=== PATIENT | female | born 1945 | race Caucasian/White ===

== ENCOUNTER → 2016-12-15 | Outpatient (CLI) | payer MEDICARE ==
[~2016-12-15] MED LIST: AMLO10TA4 PO; ASCO100083 PO; ASP81CT; ATR20T; CAL/MAG/ZINC PO; CHOL100055 PO; CPR500T PO; DULO60CA6 PO; GINKO; HYDR-3720 PO; HYDR1TAB PO; INDM25C PO; ISOS20TA73 PO; OMEP-10 PO; OMG1KC PO; PRILOSEC; RLX60T PO; VIT D; VITAMIN E PO; [UNRECOGNIZED DRUG - OTHER]
--- NOTE | 2016-12-15 14:36 | Diagnostic Imaging Report ---
EXAMINATION: Right breast ultrasound. INDICATION: Right breast pain and lump. FINDINGS: Unremarkable breast parenchyma is seen in the outer aspect with no underlying lesion in the area of palpable lump at the 10:30 o'clock position and elsewhere in the outer aspect of the right breast. IMPRESSION: Negative study. Clinical followup is recommended. ACR BI-RADS Category 1: Negative. Dictated by: Dictated on workstation # [id number]
--- NOTE | 2016-12-15 18:11 | Diagnostic Imaging Report ---
Bilateral diagnostic mammogram. INDICATION: Right breast pain, outer aspect. The current study was also evaluated with a Computer Aided Detection (CAD) system. FINDINGS: Heterogeneously dense parenchyma which may decrease mammographic sensitivity is seen. There are benign-appearing calcifications noted. No mass, architectural distortion or suspicious cluster of calcification is noted. IMPRESSION: Stable dense breasts. Ultrasound evaluation pending. ACR BI-RADS Category 0: Incomplete. (Needs additional imaging evaluation). Result letter will be mailed to the patient. Note: At least 10% of breast cancer is not imaged by mammography. Dictated by: Dictated on workstation # [id number]
== END ==
LOC: RAD 10:31
PROVIDERS: ATTEND Internal Medicine
DX: N64.4 Mastodynia (principal)
CPT/HCPCS: 77066

== ENCOUNTER → 2017-03-11 | Outpatient (CLI) | payer MEDICARE ==
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
== END ==
LOC: RAD 17:26
PROVIDERS: ATTEND Internal Medicine
DX: S19.9XXA Unspecified injury of neck, initial encounter (principal); M47.812 Spondylosis without myelopathy or radiculopathy, cervical region; X58.XXXA Exposure to other specified factors, initial encounter; Y99.8 Other external cause status
CPT/HCPCS: 72040

== ENCOUNTER → 2017-04-06 | Outpatient (CLI) | payer OTHER, MEDICARE ==
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
== END ==
LOC: RAD 09:31
PROVIDERS: ATTEND Internal Medicine
DX: M48.07 Spinal stenosis, lumbosacral region (principal); M51.34 Other intervertebral disc degeneration, thoracic region; Z98.1 Arthrodesis status
CPT/HCPCS: 72148

== ENCOUNTER 2017-12-24 12:15 | Emergency (ER) | payer MEDICARE ==
[~2017-12-24] VITALS: Ht 157.5 cm; Wt 106.6 kg
--- OUTSIDE RECORDS SUMMARY | 2017-12-24 12:21 | XMS REPORT ---
Author Author IMELDA LÓPEZ [employer] Address Unknown Phone Unavailable Care Team Providers Care Gis Programmer Name Role Phone IMELDA LÓPEZ CP Unavailable Allergies, Adverse Reactions, Alerts Substance Reaction Event Type N.K.D.A. Info Not Available Non Drug Allergy Problems Problem Type Condition Code Onset Dates Condition Status Assessment Dental examination Z01.20 Active Problem ZOSTAVAX DX V05.8 Active Medications Medication Code System Code Instructions Start Date End Date Status Dosage Prilosec [facility] [address]-27 not defined Aspir-81 [facility] [address]-13 not defined Nitroglycerin [facility] [address]-23 not defined Omeprazole ND 0 not defined Raloxifene HCl [facility] [address]-81 not defined Inderal LA [facility] [address]-43 not defined Evista [facility] [address]-07 not defined Procedures Procedure Coding System Code Date INTRAORL-PERIAPICAL 1 FILM 78619 CPT-4 D0220 May 13, 2016 LTD ORAL EVALUATION - PROBLEM FOCUS CPT-4 D0140 May 13, 2016 Results No Known Results Summary Purpose eClinicalWorks Submission
--- OUTSIDE RECORDS SUMMARY | 2017-12-24 12:21 | XMS REPORT | Clinical Summary ---
Author Author [facility] Organization [facility] Address Unknown Phone Unavailable Care Team Providers Care Motors And Generators Inspector Name Role Phone Fer Delarosa MD PCP Source Comments Some departments are not documenting in the electronic medical record. If you do not see the information that you expected, contact Release of Information in the Health Information Management department at [phone] for further assistance in locating additional records.[facility] Allergies No Known Allergies Current Medications Prescription Sig. Disp. Refills Start End Date Status Date HYDROcodone/acetaminophen Take 1 tablet by mouth as Active (+) (NORCO) 10/325 mg Needed for Pain tablet omeprazole DR(+) Take 20 mg by mouth daily Active (PRILOSEC) 20 mg capsule before breakfast. duloxetine DR (CYMBALTA) Take 60 mg by mouth Active 60 mg capsule daily. aspirin EC 81 mg tablet Take 81 mg by mouth Active daily. Take with food. amLODIPine (NORVASC) 10 Take 10 mg by mouth Active mg tablet daily. isosorbide mononitrate SR Take 60 mg by mouth every Active (IMDUR) 60 mg tablet morning. raloxifene (EVISTA) 60 mg Take 60 mg by mouth daily Active tablet before breakfast. simvastatin (ZOCOR) 40 mg Take 40 mg by mouth at Active tablet bedtime daily. Active Problems Problem Noted Date Degenerative scoliosis in adult patient 08/25/2017 Spinal stenosis of lumbar region without neurogenic claudication 08/25/2017 Social History Tobacco Use Types Packs/Day Years Used Date Never Smoker Smokeless Tobacco: Never Used Sex Assigned at Date Recorded Not on file Last Filed Vital Signs Vital Sign Reading Time Taken Blood Pressure 146/88 08/25/2017 8:55 AM PATIENT SERVICES COORDINATOR Pulse 104 08/25/2017 8:55 AM PATIENT SERVICES COORDINATOR Temperature - - Respiratory Rate - - Oxygen Saturation 94% 08/25/2017 8:55 AM PATIENT SERVICES COORDINATOR Inhaled Oxygen - - Concentration Weight 103 kg (227 lb) 08/25/2017 8:55 AM PATIENT SERVICES COORDINATOR Height 157.5 cm (5' 2") 08/25/2017 8:55 AM PATIENT SERVICES COORDINATOR Body Mass Index 41.52 08/25/2017 8:55 AM PATIENT SERVICES COORDINATOR Plan of Treatment Health Maintenance Due Date Last Done Comments HEPATITIS C SCREENING 1944 PHYSICAL (COMPREHENSIVE) 1951 EXAM PERTUSSIS VACCINE 1955 TETANUS VACCINE 1961 BREAST CANCER SCREENING 1984 COLORECTAL CANCER 1994 SCREENING SHINGLES VACCINE 2004 OSTEOPOROSIS SCREENING 2009 PREVNAR/PNEUMOVAX (#1) 2009 INFLUENZA VACCINE 05/23/2018 Results Not on filefrom Last 3 Months
--- OUTSIDE RECORDS SUMMARY | 2017-12-24 12:21 | XMS REPORT | Continuity of Care Document ---
Author Author [employer] [facility] Address Unknown Phone Unavailable Care Team Providers Care Film Maker Name Role Phone [employer] Unavailable Unavailable Problems Medications Allergies, Adverse Reactions, Alerts Immunizations Results Vital Signs Encounters Location Location Details Encounter Type Encounter Number Reason For Visit Attending Provider ADM Date DC Date Status Source O 04/06/2017 04/06/2017 Active [facility] OUTPATIENT [id number] OPAL RANDALL 08/25/2017 08/25/2017 Active [facility] OUTPATIENT [id number] OPAL RANDALL 11/24/2017 Active [facility] Procedures Plan of Care Social History Assessment and Plan Family History Advance Directives Functional Status
--- OUTSIDE RECORDS SUMMARY | 2017-12-24 12:21 | XMS REPORT | Continuity of Care Document ---
Author Author [facility] Address Unknown Phone Unavailable Allergies Active Description Code Type Severity Reaction Onset Reported/Identified Relationship to Patient Clinical Status Yes No Known Drug Allergies [id number] Drug Allergy Mild N/A 01/09/2008 Medications There is no data. Problems Date Dx Coded Attending Type Code Diagnosis Diagnosed By 04/13/2011 Ot 401.9 HYPERTENSION NOS 04/13/2011 Ot 592.1 CALCULUS OF URETER 04/13/2011 Ot 599.0 URIN TRACT INFECTION NOS 04/13/2011 Ot 625.9 FEM GENITAL SYMPTOMS NOS 07/05/2012 Ot V45.4 ARTHRODESIS STATUS 07/05/2012 Ot V57.1 PHYSICAL THERAPY NEC 07/22/2012 Ot 311 DEPRESSIVE DISORDER NEC 07/22/2012 Ot 327.23 OBSTRUCTIVE SLEEP APNEA (ADULT) (PEDIATR 07/22/2012 Ot 401.9 HYPERTENSION NOS 07/22/2012 Ot 715.36 LOC OSTEOARTH NOS-L/LEG 09/15/2012 Ot V43.65 KNEE JOINT REPLACEMENT STATUS 09/15/2012 Ot V54.81 AFTERCARE FOLLOWING JOINT REPLACEMENT 09/15/2012 Ot V57.1 PHYSICAL THERAPY NEC 07/09/2014 DANNIE WOOD DO Ot 793.82 07/09/2014 DANNIE WOOD DO Ot V76.12 07/09/2014 DANNIE WOOD DO Ot 793.82 07/09/2014 DANNIE WOOD DO Ot V76.12 07/09/2014 DANNIE WOOD DO Ot 793.82 07/09/2014 DANNIE WOOD DO Ot V76.12 07/18/2014 GUILLERMO BURGOS MD Ot 211.3 BENIGN NEOPLASM LG BOWEL 07/18/2014 GUILLERMO BURGOS MD Ot 455.0 INT HEMORRHOID W/O COMPL 07/18/2014 GUILLERMO BURGOS MD Ot 455.3 EXT HEMORRHOID W/O COMPL 07/18/2014 GUILLERMO BURGOS MD Ot 562.10 DIVERTICULOSIS COLON (W/O MENT OF HEMORR 07/18/2014 GUILLERMO BURGOS MD Ot V76.51 SCREEN MAL NEOP-COLON 07/26/2014 DANNIE WOOD DO Ot 793.82 07/26/2014 DANNIE WOOD DO Ot V76.12 09/04/2014 MANDY BLOUNT DO V05.8 ZOSTAVAX DX 11/07/2014 Ot 275.2 DIS MAGNESIUM METABOLISM 11/07/2014 Ot 401.0 MALIGNANT HYPERTENSION 11/07/2014 Ot 427.69 PREMATURE BEATS NEC 11/07/2014 Ot 780.57 UNSPECIFIED SLEEP APNEA 11/07/2014 Ot 786.50 CHEST PAIN NOS 11/07/2014 Ot V15.81 HX OF PAST NONCOMPLIANCE 11/10/2014 PAIGE WOOD SKI LIFT MECHANIC Ot 327.23 OBSTRUCTIVE SLEEP APNEA (ADULT) (PEDIATR 11/10/2014 PAIGE WOOD SKI LIFT MECHANIC Ot 786.09 RESPIRATORY ABNORM NEC 02/12/2015 GAYLA NGUYEN MD Ot 427.69 02/14/2015 GAYLA NGUYEN MD Ot 427.69 03/07/2015 OPAL KRAFT MD Ot 401.9 HYPERTENSION NOS 03/07/2015 OPAL KRAFT MD Ot 427.31 ATRIAL FIBRILLATION 03/07/2015 OPAL KRAFT MD Ot 530.81 ESOPHAGEAL REFLUX 03/07/2015 OPAL KRAFT MD Ot 786.09 RESPIRATORY ABNORM NEC 03/07/2015 OPAL KRAFT MD Ot 786.50 CHEST PAIN NOS 03/07/2015 OPAL KRAFT MD Ot V58.69 OTH MED,LT,CURRENT USE 09/20/2015 Ot V76.12 09/20/2015 Ot 724.02 09/20/2015 Ot 591 09/20/2015 Ot 592.1 09/20/2015 Ot 592.9 09/20/2015 Ot 733.90 09/20/2015 Ot V58.69 09/20/2015 Ot V76.12 09/20/2015 Ot 715.96 09/20/2015 Ot V72.63 09/20/2015 Ot V72.81 09/20/2015 Ot V72.83 09/20/2015 Ot 793.82 09/20/2015 Ot V76.12 09/20/2015 PAIGE VALDOVINOS TRACTOR OPERATOR Ot 611.79 09/20/2015 DANNIE WOOD DO Ot 793.82 09/20/2015 DANNIE WOOD DO Ot V76.12 09/20/2015 GUILLERMO BURGOS MD Ot V72.84 09/20/2015 NGUYEN MD, GAYLA Romero Ot 427.69 10/10/2015 PAIGE WOOD SKI LIFT MECHANIC Ot Z12.31 07/24/2016 TRACI PAUL, RE Ledesma Ot Z01.818 ENCOUNTER FOR OTHER PREPROCEDURAL EXAMIN 07/24/2016 TRACI PAUL, RE Ledesma Ot Z86.010 PERSONAL HISTORY OF COLONIC POLYPS 07/27/2016 Ot 724.02 SPINAL STENOSIS, LUMBAR REG, W/OUT NEURO 07/27/2016 Ot 591 HYDRONEPHROSIS 07/27/2016 Ot 592.1 CALCULUS OF URETER 07/27/2016 Ot 592.9 URINARY CALCULUS NOS 07/27/2016 Ot 733.90 BONE CARTILAGE DIS NOS 07/27/2016 Ot V58.69 OTH MED,LT, CURRENT USE 07/27/2016 Ot V76.12 OTH SCREEN MAMMO-MALIGN NEOPLASM OF SHEELA 07/27/2016 Ot 715.96 OSTEOARTHROS NOS-L/LEG 07/27/2016 Ot V72.63 PRE- PROCEDURAL LABORATORY EXAMINATION 07/27/2016 Ot V72.81 EXAM-PRE- OPERATIVE CARDIOVASCULAR 07/27/2016 Ot V72.83 EXAM PRE- OPERATIVE NEC 07/27/2016 Ot 793.82 INCONCLUSIVE MAMMOGRAM 07/27/2016 Ot V76.12 OTH SCREEN MAMMO-MALIGN NEOPLASM OF SHEELA 07/27/2016 PAIGE VALDOVINOS TRACTOR OPERATOR Ot 611.79 SYMPTOMS IN BREAST NEC 07/27/2016 DANNIE WOOD DO Ot 793.82 INCONCLUSIVE MAMMOGRAM 07/27/2016 DANNIE WOOD DO Ot V76.12 OTH SCREEN MAMMO-MALIGN NEOPLASM OF SHEELA 07/27/2016 AUBREY PAUL, GUILLERMO Ot V72.84 EXAM PRE-OPERATIVE NOS 07/27/2016 NGUYEN MD, GAYLA Romero Ot 427.69 PREMATURE BEATS NEC 07/27/2016 ISRAEL PAIGE Cunningham SKI LIFT MECHANIC Ot Z12.31 ENCNTR SCREEN MAMMOGRAM FOR MALIGNANT NE 07/27/2016 TRACI PAUL, RE Ledesma Ot Z01.818 ENCOUNTER FOR OTHER PREPROCEDURAL EXAMIN 07/27/2016 TRACI PAUL, RE Ledesma Ot Z86.010 PERSONAL HISTORY OF COLONIC POLYPS 07/27/2016 TRACI PAUL, RE Ledesma Ot K57.90 DVRTCLOS OF INTEST, PART UNSP, W/O PERF 07/27/2016 TRACI PAUL, RE Ledesma Ot Z09 ENCNTR FOR F/U EXAM AFT TRTMT FOR COND O 07/27/2016 TRACI PAUL, RE Ledesma Ot Z86.010 PERSONAL HISTORY OF COLONIC POLYPS 07/30/2016 TRACI PAUL, RE Ledesma Ot K57.90 DVRTCLOS OF INTEST, PART UNSP, W/O PERF 07/30/2016 RE AVILES MD Ot Z09 ENCNTR FOR F/U EXAM AFT TRTMT FOR COND O 07/30/2016 TRACI PAUL, RE Ledesma Ot Z86.010 PERSONAL HISTORY OF COLONIC POLYPS 09/24/2016 Ot 591 HYDRONEPHROSIS 09/24/2016 Ot 592.1 CALCULUS OF URETER 09/24/2016 Ot 592.9 URINARY CALCULUS NOS 09/24/2016 Ot 733.90 BONE CARTILAGE DIS NOS 09/24/2016 Ot V58.69 OTH MED,LT, CURRENT USE 09/24/2016 Ot V76.12 OTH SCREEN MAMMO-MALIGN NEOPLASM OF SHEELA 09/24/2016 Ot 715.96 OSTEOARTHROS NOS-L/LEG 09/24/2016 Ot V72.63 PRE- PROCEDURAL LABORATORY EXAMINATION 09/24/2016 Ot V72.81 EXAM-PRE- OPERATIVE CARDIOVASCULAR 09/24/2016 Ot V72.83 EXAM PRE- OPERATIVE NEC 09/24/2016 Ot 793.82 INCONCLUSIVE MAMMOGRAM 09/24/2016 Ot V76.12 OTH SCREEN MAMMO-MALIGN NEOPLASM OF SHEELA 09/24/2016 BONIFACIO PAIGE Romero TRACTOR OPERATOR Ot 611.79 SYMPTOMS IN BREAST NEC 09/24/2016 DANNIE WOOD DO Ot 793.82 INCONCLUSIVE MAMMOGRAM 09/24/2016 DANNIE WOOD DO Ot V76.12 OTH SCREEN MAMMO-MALIGN NEOPLASM OF SHEELA 09/24/2016 AUBREY PAUL, GUILLERMO Ot V72.84 EXAM PRE-OPERATIVE NOS 09/24/2016 NGUYEN MD, GAYLA Romero Ot 427.69 PREMATURE BEATS NEC 09/24/2016 PAIGE WOOD Ot Z12.31 ENCNTR SCREEN MAMMOGRAM FOR MALIGNANT NE 09/24/2016 TRACI PAUL, RE Ledesma Ot Z01.818 ENCOUNTER FOR OTHER PREPROCEDURAL EXAMIN 09/24/2016 TRACI PAUL, RE Ledesma Ot Z86.010 PERSONAL HISTORY OF COLONIC POLYPS 12/15/2016 DANNIE WOOD DO Ot N64.4 MASTODYNIA 01/06/2017 DANNIE WOOD DO Ot N64.4 MASTODYNIA 01/19/2017 DANNIE WOOD DO Ot N64.4 MASTODYNIA 03/15/2017 DANNIE WOOD DO Ot M47.812 SPONDYLOSIS W/O MYELOPATHY OR RADICULOPA 03/15/2017 DANNIE WOOD DO Ot S19.9XXA UNSPECIFIED INJURY OF NECK, INITIAL ENCO 03/15/2017 DANNIE WOOD DO Ot X58.XXXA EXPOSURE TO OTHER SPECIFIED FACTORS, INI 03/15/2017 DANNIE WOOD DO Ot Y99.8 OTHER EXTERNAL CAUSE STATUS 04/06/2017 DANNIE WOOD DO Ot M47.812 SPONDYLOSIS W/O MYELOPATHY OR RADICULOPA 04/06/2017 DANNIE WOOD DO Ot S19.9XXA UNSPECIFIED INJURY OF NECK, INITIAL ENCO 04/06/2017 DANNIE WOOD DO Ot X58.XXXA EXPOSURE TO OTHER SPECIFIED FACTORS, INI 04/06/2017 DANNIE WOOD DO Ot Y99.8 OTHER EXTERNAL CAUSE STATUS 04/23/2017 DANNIE WOOD DO Ot M47.812 SPONDYLOSIS W/O MYELOPATHY OR RADICULOPA 04/23/2017 DANNIE WOOD DO Ot S19.9XXA UNSPECIFIED INJURY OF NECK, INITIAL ENCO 04/23/2017 DANNIE WOOD DO Ot X58.XXXA EXPOSURE TO OTHER SPECIFIED FACTORS, INI 04/23/2017 DANNIE WOOD DO Ot Y99.8 OTHER EXTERNAL CAUSE STATUS 05/26/2017 WOOD DO DANNIE Wilcox Ot M47.812 SPONDYLOSIS W/O MYELOPATHY OR RADICULOPA 05/26/2017 WOOD DO, DANNIE Jeri Ot S19.9XXA UNSPECIFIED INJURY OF NECK, INITIAL ENCO 05/26/2017 WOOD DO DANNIE Wilcox Ot X58.XXXA EXPOSURE TO OTHER SPECIFIED FACTORS, INI 05/26/2017 ISRAEL SOTO DANNIE Jeri Ot Y99.8 OTHER EXTERNAL CAUSE STATUS 05/27/2017 WOOD DO DANNIE Wilcox Ot M47.812 SPONDYLOSIS W/O MYELOPATHY OR RADICULOPA 05/27/2017 WOOD DO, DANNIE Wilcox Ot S19.9XXA UNSPECIFIED INJURY OF NECK, INITIAL ENCO 05/27/2017 WOOD DO DANNIE Wilcox Ot X58.XXXA EXPOSURE TO OTHER SPECIFIED FACTORS, INI 05/27/2017 ISRAEL SOTO DANNIE Jeri Ot Y99.8 OTHER EXTERNAL CAUSE STATUS 09/21/2017 DANNIE WOOD DO Ot M48.07 SPINAL STENOSIS, LUMBOSACRAL REGION 09/21/2017 ISRAEL SOTO DANNIE eJri Ot M51.34 OTHER INTERVERTEBRAL DISC DEGENERATION, 09/21/2017 ISRAEL SOTO DANNIE Jeri Ot Z98.1 ARTHRODESIS STATUS Procedures Code Description Performed By Performed On 81.54 TOTAL KNEE REPLACEMENT 07/19/2012 Results There is no data. Encounters ACCT No. Visit Date/Time Discharge Status Pt. Type Provider Facility Loc./Unit Complaint [id number] 09/04/2014 16:37:00 09/04/2014 23:59:59 CLS Outpatient BLOUNT MANDY SOTO Sameer [id number] 04/06/2017 09:31:00 04/06/2017 23:59:59 CLS Outpatient DANNIE WOOD DO [facility] RAD M48.06 [id number] 03/11/2017 17:26:00 03/11/2017 23:59:59 CLS Outpatient DANNIE WOOD DO [facility] RAD TRAUMA [id number] 12/15/2016 10:31:00 12/15/2016 23:59:59 CLS Outpatient DANNIE WOOD DO [facility] RAD N64.4 [id number] 11/23/2016 09:53:00 11/23/2016 23:59:59 CLS Preadmit RODNEY ROSALES MD [facility] REHAB R TKA [id number] 09/28/2016 11:15:00 09/28/2016 23:59:59 CLS Preadmit PAIGE WOOD SKI LIFT MECHANIC [facility] RAD SCREENING [id number] 07/27/2016 06:24:00 07/27/2016 09:30:00 DIS Outpatient RE AVILES MD [facility] SDC HISTORY OF POLYPS [id number] 07/23/2016 05:38:00 07/23/2016 23:59:59 CLS Outpatient RE AVILES MD [facility] PREOP HISTORY OF POLYPS [id number] 09/20/2015 12:57:00 09/20/2015 23:59:59 CLS Outpatient PAIGE WOOD SKI LIFT MECHANIC [facility] RAD SCREENING [id number] 03/07/2015 15:55:00 03/07/2015 21:29:00 DIS Emergency ABENA PAUL, OPAL Mars [facility] ER CP [id number] 01/10/2015 12:59:00 01/10/2015 23:59:59 CLS Outpatient GAYLA NGUYEN MD [facility] CARD PALP [id number] 11/09/2014 20:03:00 11/10/2014 06:35:00 DIS Outpatient PAIGE WOOD SKI LIFT MECHANIC [facility] SLEEP OBSERVED APNEAS SNORING CHOKING HTN HYPOXIA [id number] 07/18/2014 09:20:00 07/18/2014 12:42:00 DIS Outpatient GUILLERMO BURGOS MD [facility] SDC SCREENING [id number] 07/12/2014 07:27:00 07/12/2014 23:59:59 CLS Outpatient GUILLERMO BURGOS MD [facility] PREOP SCREENING [id number] 07/05/2014 14:22:00 07/05/2014 23:59:59 CLS Outpatient DANNIE WOOD DO [facility] RAD ROUTINE [id number] 07/07/2013 12:14:00 07/07/2013 23:59:59 CLS Outpatient PAIGE VALDOVINOS Nick NEVAREZN [facility] RAD NIPPLE DISHCARGE, PAIN [id number] 11/06/2014 15:20:00 Document Registration [id number] 09/23/2012 13:53:00 Document Registration [id number] 09/15/2012 13:49:00 Document Registration [id number] 07/19/2012 13:00:00 Document Registration [id number] 07/12/2012 08:14:00 Document Registration [id number] 06/02/2012 12:48:00 Document Registration [id number] 09/17/2011 13:54:00 Document Registration [id number] 04/22/2011 10:24:00 Document Registration [id number] 04/16/2011 13:05:00 Document Registration [id number] 04/13/2011 15:45:00 Document Registration [id number] 03/23/2011 09:33:00 Document Registration [id number] 08/28/2010 08:50:00 Document Registration
--- NOTE | 2017-12-24 13:51 | ED General ---
General Chief Complaint: General Problems/Pain Stated Complaint: LOWER BACK SWELLING Source of Information: Patient, Family Exam Limitations: No Limitations History of Present Illness Date Seen by Provider: December 24, 2017 Time Seen by Provider: 13:47 Initial Comments To ER by her daughter per private vehicle with reports of swelling to the left low back. On the of this month patient had low back surgery by Dr. Woodward. At that same time she also had a lipoma to the left flank that he removed. Starting yesterday the area of the former lipoma became increasingly red painful and tender. No fevers or chills. Timing/Duration: 1-2 Days Severity: Moderate Associated Systoms: No Fever/Chills Allergies and Home Medications Allergies Coded Allergies: No Known Drug Allergies (Verified , 01/09/08) Home Medications Amlodipine Besylate 10 Mg Tablet, 10 MG PO HS, (Reported) Ascorbic Acid 1,000 Mg Tab.chew, 1,000 MG PO DAILY, (Reported) Cholecalciferol (Vitamin D3) 10,000 Unit Capsule, 20,000 UNIT PO DAILY, ( Reported) TAKES 2 (10,000 UNITS) Duloxetine Hcl 60 Mg Capsule.dr, 60 MG PO HS, (Reported) Hydrocodone Bit/Acetaminophen 1 Ea Tab, 1 TAB PO Q6H PRN for PAIN, (Reported) Isosorbide Mononitrate 20 Mg Tablet, 20 MG PO DAILY, (Reported) [place] 3 Polyunsat Fatty Acids 1,000 Mg Cap, 1,000 MG PO DAILY, (Reported) Omeprazole 20 Mg Capsule.dr, 20 MG PO DAILY, (Reported) Raloxifene Hcl 60 Mg Tablet, 60 MG PO HS, (Reported) Sulfamethoxazole/Trimethoprim 1 Each Tablet, 1 EACH PO BID Prescribed by: RYDER DIXON on 12/24/17 1435 [Vitamin E] , 1 CAP PO DAILY, (Reported) Patient Home Medication List Home Medication List Reviewed: Yes Review of Systems Constitutional: see HPI; No chills, No fever EENTM: see HPI Respiratory: no symptoms reported Cardiovascular: no symptoms reported Genitourinary: no symptoms reported Musculoskeletal: no symptoms reported Skin: see HPI Psychiatric/Neurological: No Symptoms Reported Hematologic/Lymphatic: No Symptoms Reported Past Jscypux-Ygexrh-Kjlwoe Hx Patient Social History Recent Foreign Travel: No Contact w/Someone Who Travel: No Recent Hopitalizations: Yes (BACK SURG) Immunizations Up To Date Tetanus Booster (TDap): More than 5yrs Date of Pneumonia Vaccine: Nov 06, 2010 Date of Influenza Vaccine: Jul 23, 2014 Seasonal Allergies Seasonal Allergies: No Past Medical History Appendectomy, Hysterectomy, Joint Replacement, Orthopedic Atrial Fibrillation, Hypertension, Palpitations Reproductive Disorders: Yes 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 Physical Exam Vital Signs Vital Signs - First Documented 12/24/17 12:44 Temp 97.9 Pulse 90 Resp 18 B/P (MAP) 148/77 (100) Pulse Ox 94 O2 Delivery Room Air Capillary Refill : General Appearance: No Apparent Distress, WD/WN Eyes: Bilateral Eye Normal Inspection, Bilateral Eye PERRL, Bilateral Eye EOMI HEENT: PERRL/EOMI, TMs Normal Neck: Full Range of Motion, Normal Inspection Respiratory: No Accessory Muscle Use, No Respiratory Distress Cardiovascular: Regular Rate, Rhythm, Normal Peripheral Pulses Gastrointestinal: Normal Bowel Sounds, Non Tender, Soft Back: Other (Midline lumbar incision clean dry and intact without erythema or drainage. To the left flank there is a horizontal incision without drainage but beneath this there does feel to be a 6-7 cm area of fluctuance some minimal erythema.) Extremity: Normal Capillary Refill, Normal Inspection Neurologic/Psychiatric: Alert, Oriented x3, No Motor/Sensory Deficits Progress/Results/Core Measures Suspected Sepsis SIRS Temperature: Pulse: Respiratory Rate: Laboratory Tests 12/24/17 13:47: White Blood Count 11.4H Blood Pressure / Mean: Laboratory Tests 12/24/17 13:47: Creatinine 1.13, Platelet Count 187 Results/Orders Lab Results Laboratory Tests Test 12/24/17 13:47 Range/Units White Blood Count 11.4 H 4.3-11.0 10^3/uL Red Blood Count 4.43 4.35-5.85 10^6/uL Hemoglobin 13.1 11.5-16.0 G/DL Hematocrit 40 35-52 % Mean Corpuscular Volume 91 80-99 FL Mean Corpuscular Hemoglobin 30 25-34 PG Mean Corpuscular Hemoglobin Concent 33 32-36 G/DL Red Cell Distribution Width 13.2 10.0-14.5 % Platelet Count 187 130-400 10^3/uL Mean Platelet Volume 10.7 H 7.4-10.4 FL Neutrophils (%) (Auto) 70 42-75 % Lymphocytes (%) (Auto) 15 12-44 % Monocytes (%) (Auto) 13 H 0-12 % Eosinophils (%) (Auto) 2 0-10 % Basophils (%) (Auto) 0 0-10 % Neutrophils # (Auto) 8.0 H 1.8-7.8 X 10^3 Lymphocytes # (Auto) 1.7 1.0-4.0 X 10^3 Monocytes # (Auto) 1.4 H 0.0-1.0 X 10^3 Eosinophils # (Auto) 0.2 0.0-0.3 10^3/uL Basophils # (Auto) 0.0 0.0-0.1 10^3/uL Sodium Level 140 135-145 MMOL/L Potassium Level 4.0 3.6-5.0 MMOL/L Chloride Level 109 H 98-107 MMOL/L Carbon Dioxide Level 23 21-32 MMOL/L Anion Gap 8 5-14 MMOL/L Blood Urea Nitrogen 21 H 7-18 MG/DL Creatinine 1.13 0.60-1.30 MG/DL Estimat Glomerular Filtration Rate 47 BUN/Creatinine Ratio 19 Glucose Level 106 H 70-105 MG/DL Calcium Level 9.2 8.5-10.1 MG/DL My Orders Orders - RYDER DIXON APRN Us Soft Tissue Unlisted [id number] (12/24/17 13:37) Cbc With Automated Diff (12/24/17 13:37) Basic Metabolic Panel (12/24/17 13:37) Li-Zmrljiw-Yshqjw (Order) (12/24/17 13:37) Ceftriaxone Injection (Rocephin Injectio (12/24/17 14:30) Lidocaine 2% Injection 20 Ml (Xylocaine (12/24/17 14:45) Body Fluid Culture (12/24/17 14:35) Vital Signs/I&O 12/24/17 12:44 Temp 97.9 Pulse 90 Resp 18 B/P (MAP) 148/77 (100) Pulse Ox 94 O2 Delivery Room Air Capillary Refill : Departure Communication (Admissions) 1433- I did speak with Dr. Woodward who did the surgery. He confirms that this was a lipoma that he removed and the pathology report confirmed this. He would recommend some oral antibiotics, aspiration rather than Jose drain placement. 1503- small area over the lipoma excision incision anesthetized with 0.5 mL of 2 % lidocaine without epinephrine. 18-gauge 1/2 inch needle was then introduced no more than half way and I was able to aspirate 95 mL of straw-colored somewhat cloudy fluid. Culture of this was sent to lab. She's given Rocephin at this time. Puncture wound was covered with gauze and an OpSite. Impression Primary Impression: Postoperative seroma Disposition: HOME, SELF-CARE Condition: Stable Departure-Patient Inst. Decision time for Depature: 14:34 Referrals: DANNIE WOOD DO (PCP/Family) Primary Care Physician Patient Instructions: NO INSTRUCTIONS GIVEN Add. Discharge Instructions: 1. Antibiotic as directed 2. Return to ER for any concerns such as increased redness swelling or fevers. Call Dr. Woodward for follow-up next week. All discharge instructions reviewed with patient and/or family. Voiced understanding. Scripts Sulfamethoxazole/Trimethoprim (Bactrim Ds Tablet) 1 Each Tablet 1 EACH PO BID, #14 TAB Prov: RYDER DIXON APRN 12/24/17 Copy Copies To 1: ARNALDO WOODWARD MD Copies To 2: DANNIE WOOD PETER J APRN December 24, 2017 13:51
[2017-12-24 14:01] LABS: BASOPHILS % (AUTO) 0 % (0-10); EOSINOPHILS # (AUTO) 0.2 10^3/uL (0.0-0.3); EOSINOPHILS % (AUTO) 2 % (0-10); HEMATOCRIT 40 % (35-52); HEMOGLOBIN 13.1 G/DL (11.5-16.0); LYMPHOCYTES # (AUTO) 1.7 X 10^3 (1.0-4.0); LYMPHOCYTES % (AUTO) 15 % (12-44); MEAN CORPUSCULAR HEMOGLOBIN 30 PG (25-34); MEAN CORPUSCULAR HGB CONC 33 G/DL (32-36); MEAN CORPUSCULAR VOLUME 91 FL (80-99); MEAN PLATELET VOLUME 10.7 FL (7.4-10.4); MONOCYTES # (AUTO) 1.4 X 10^3 (0.0-1.0); MONOCYTES % (AUTO) 13 % (0-12); NEUTROPHILS % (AUTO) 70 % (42-75); PLATELET COUNT 187 10^3/uL (130-400); RED BLOOD COUNT 4.43 10^6/uL (4.35-5.85); RED CELL DISTRIBUTION WIDTH 13.2 % (10.0-14.5); WHITE BLOOD COUNT 11.4 10^3/uL (4.3-11.0)
[2017-12-24 14:15] LABS: CALCIUM 9.2 MG/DL (8.5-10.1); CREATININE SERUM 1.13 MG/DL (0.60-1.30)
[2017-12-24] MEDS ORDERED: cefTRIAXone INJECTION 1,000 MG in NS (IVPB) 100 ML IV ONE (14:30)
[2017-12-24] MEDS ORDERED: SULF1TAB35 PO (14:35)
[2017-12-24] MEDS ORDERED: LIDOCAINE 2% 20 ML (XYLOCAINE) VIAL INJ ONE (14:45)
--- NOTE | 2017-12-24 15:09 | Diagnostic Imaging Report ---
INDICATION: Lipoma removal of the back. EXAMINATION: Sonographic interrogation of the back was performed. FINDINGS: There is a complex fluid collection at this location with thin internal septations, measuring 7.8 x 2.7 x 8.3 cm. It is most consistent with resolving hematoma/seroma. No internal vascularity is present. IMPRESSION: Probable hematoma/seroma at the site of prior surgery. Dictated by: Dictated on workstation # [id number]
[2017-12-24 16:11] VITALS: BP 156/92
== END 2017-12-24 16:11 | disposition home or self-care (01) ==
LOC: EDUNIT# 12:15 → ER 12:17
DX: L76.34 Postprocedural seroma of skin and subcutaneous tissue following other procedure (principal); I48.91 Unspecified atrial fibrillation; I10 Essential (primary) hypertension; K21.9 Gastro-esophageal reflux disease without esophagitis; F41.9 Anxiety disorder, unspecified; F32.9 Major depressive disorder, single episode, unspecified; Z78.0 Asymptomatic menopausal state; Z90.49 Acquired absence of other specified parts of digestive tract; Z90.710 Acquired absence of both cervix and uterus; Z98.890 Other specified postprocedural states
CPT/HCPCS: 10060; 36415; 76999; 80048; 85025; 87070; 87077; 87186; 87205; 96365

== ENCOUNTER → 2018-03-17 | Outpatient (CLI) | payer MEDICARE ==
[~2018-03-17] MED LIST changes: +SULF1TAB35 PO
--- NOTE | 2018-03-17 18:03 | Diagnostic Imaging Report ---
INDICATION: Digital mammogram bilateral screening with 3-D tomosynthesis. This study was compared to the prior exams of 12/15/16, 09/20/15 and 07/05/14. At this time, there are no current complaints. The current study was also evaluated with a Computer Aided Detection (CAD) system. FINDINGS: The fibroglandular tissue in both breasts is heterogeneously dense. This does limit the sensitivity of this exam. Overall, there does not appear to have been any significant change when compared to the prior study. No primary or secondary sign of malignancy is noted. 3D tomographic images fail to show any sign of malignancy. IMPRESSION: There is no radiographic evidence for malignancy. ACR BI-RADS Category 1: Negative. Result letter will be mailed to the patient. Note: At least 10% of breast cancer is not imaged by mammography. Dictated by: Dictated on workstation # [id number]
== END ==
LOC: RAD 13:46
PROVIDERS: ATTEND Internal Medicine
DX: Z12.31 Encounter for screening mammogram for malignant neoplasm of breast (principal)
CPT/HCPCS: 77067

== ENCOUNTER → 2018-05-24 | Outpatient (CLI) | payer MEDICARE ==
--- NOTE | 2018-05-24 10:30 | Diagnostic Imaging Report ---
PROCEDURE: US Gallbladder. TECHNIQUE: Multiple real-time grayscale images were obtained over the right upper quadrant in various projections. INDICATION: Epigastric pain. FINDINGS: Liver parenchyma appears normal. The liver is not enlarged with long axis of 16 cm. Bile ducts are not dilated. Common duct measures 4 mm. Gallbladder appears normal with no gallstones or wall thickening. There is noted a septation or fold within the mid gallbladder. Pancreas is not visualized. Right kidney appears normal. There is no ascites. Doppler sampling shows normal flow within the main portal vein. IMPRESSION: Normal right upper quadrant ultrasound. Dictated by: Dictated on workstation # [id number]
== END ==
LOC: RAD 07:45
PROVIDERS: ATTEND Internal Medicine
DX: R10.13 Epigastric pain (principal)
CPT/HCPCS: 76705

== ENCOUNTER 2018-07-03 13:36 | Emergency (ER) | payer MEDICARE ==
[~2018-07-03] VITALS: Ht 154.9 cm; Wt 99.8 kg
--- OUTSIDE RECORDS SUMMARY | 2018-07-03 13:50 | XMS REPORT ---
Author Author BELLO FLORES Organization [facility] Address [address] [place] [address] Care Team Providers Care Commercial Loan Administrator Name Role Phone BELLO FLORES Unavailable PROBLEMS Type Condition ICD9-CM Code NUF17-MD Code Onset Dates Condition Status SNOMED Code Problem ZOSTAVAX DX V05.8 Active [id number] ALLERGIES No Known Allergies ENCOUNTERS Encounter Location Date Diagnosis [facility] [id number] [place] [id number] May, Dental examination Z01.20 [facility] [id number] [place] [id number] Oct, Dental caries K02.9 [facility] [id number] [place] [id number] Apr, Dental examination Z01.20 [facility] [id number] [place] [phone] Aug, [facility] [id number] [place] [phone] Aug, IMMUNIZATIONS No Known Immunizations SOCIAL HISTORY Never Assessed REASON FOR VISIT betito chipped front teeth PLAN OF CARE Activity Details Follow Up prn Reason:srp ll/ prophy rest of mouth VITAL SIGNS Blood pressure systolic 149 mmHg 2017-06-22 Blood pressure diastolic 98 mmHg 2017-06-22 MEDICATIONS Medication Instructions Dosage Frequency Start Date End Date Duration Status Lisinopril Active Aspir-81 Active Omeprazole Active Evista Active Prilosec Active Nitroglycerin Active RESULTS No Results PROCEDURES Procedure Date Ordered Result Body Site COMP ORAL EVALUATION - NEW/EST PT Jun 22, 2017 INTRAORL-PERIAPICAL 1 FILM [id number] Jun 22, 2017 BITEWINGS - FOUR FILMS Jun 22, 2017 INTRAORL-PERIAPICAL EA ADD FILM Jun 22, 2017 PANORAMIC FILM SEE ALSO CODE [id number] Jun 22, 2017 INSTRUCTIONS MEDICATIONS ADMINISTERED No Known Medications MEDICAL (GENERAL) HISTORY Type Description Date Medical History Knee replacement 2011 Medical History Back surgery Medical History Patient sees Dr. Delarosa [phone] Surgical History Knee replacement
--- OUTSIDE RECORDS SUMMARY | 2018-07-03 13:50 | XMS REPORT | Clinical Summary ---
Author Author [facility] Organization [facility] Address Unknown Phone Unavailable Care Team Providers Care Jukebox Routeman Name Role Phone Fer Delarosa MD PCP Source Comments Some departments are not documenting in the electronic medical record. If you do not see the information that you expected, contact Release of Information in the Health Information Management department at [phone] for further assistance in locating additional records.[facility] Allergies No Known Allergies Current Medications [...] Taken Blood Pressure 146/88 08/25/2017 8:55 AM MERCHANDISE PLANNER Pulse 104 08/25/2017 8:55 AM MERCHANDISE PLANNER Temperature - - Respiratory Rate - - Oxygen Saturation 94% 08/25/2017 8:55 AM MERCHANDISE PLANNER Inhaled Oxygen - - Concentration Weight 103 kg (227 lb) 08/25/2017 8:55 AM MERCHANDISE PLANNER Height 157.5 cm (5' 2") 08/25/2017 8:55 AM MERCHANDISE PLANNER Body Mass Index 41.52 08/25/2017 8:55 AM MERCHANDISE PLANNER Plan of Treatment Health Maintenance Due Date Last Done Comments HEPATITIS C SCREENING 1944 PHYSICAL (COMPREHENSIVE) 1951 EXAM PERTUSSIS VACCINE 1955 TETANUS VACCINE 1961 BREAST CANCER SCREENING 1984 COLORECTAL CANCER 1994 SCREENING SHINGLES RECOMBINANT 1994 VACCINE (1 of 2) OSTEOPOROSIS 2009 SCREENING/MONITORING PNEUMONIA (PCV13/PPSV23) 2009 VACCINES (1 of 2 - PCV13) INFLUENZA VACCINE 03/23/2018 Results Not on filefrom Last 3 Months
--- OUTSIDE RECORDS SUMMARY | 2018-07-03 13:51 | XMS REPORT | Continuity of Care Document ---
Author Author [facility] Address Unknown Phone Unavailable Allergies Active Description Code Type Severity Reaction Onset Reported/Identified Relationship to Patient Clinical Status Yes No Known Drug Allergies [id number] Drug Allergy Mild N/A 01/09/2008 Medications There [...] HX OF PAST NONCOMPLIANCE 11/10/2014 PAIGE WOOD CAFE TEAM MEMBER Ot 327.23 OBSTRUCTIVE SLEEP APNEA (ADULT) (PEDIATR 11/10/2014 PAIGE WOOD CAFE TEAM MEMBER Ot 786.09 RESPIRATORY ABNORM NEC 02/12/2015 GAYLA [...] 793.82 09/20/2015 Ot V76.12 09/20/2015 PAIGE VALDOVINOS SOLAR ENERGY SYSTEM INSTALLER Ot 611.79 09/20/2015 DANNIE WOOD DO Ot 793.82 09/20/2015 DANNIE WOOD DO Ot V76.12 09/20/2015 GUILLERMO BURGOS MD Ot V72.84 09/20/2015 NGUYEN MD, GAYLA Romero Ot 427.69 10/10/2015 PAIGE WOOD CAFE TEAM MEMBER Ot Z12.31 07/24/2016 TRACI PAUL, RE Ledesma [...] MAMMO-MALIGN NEOPLASM OF SHEELA 07/27/2016 PAIGE VALDOVINOS SOLAR ENERGY SYSTEM INSTALLER Ot 611.79 SYMPTOMS IN BREAST NEC 07/27/2016 DANNIE WOOD DO Ot 793.82 INCONCLUSIVE MAMMOGRAM 07/27/2016 DANNIE WOOD DO Ot V76.12 OTH SCREEN MAMMO-MALIGN NEOPLASM OF SHEELA 07/27/2016 AUBREY PAUL, GUILLERMO Ot V72.84 EXAM PRE-OPERATIVE NOS 07/27/2016 NGUYEN MD, GAYLA Romero Ot 427.69 PREMATURE BEATS NEC 07/27/2016 ISRAEL PAIGE Cunningham CAFE TEAM MEMBER Ot Z12.31 ENCNTR SCREEN MAMMOGRAM FOR MALIGNANT [...] NEOPLASM OF SHEELA 09/24/2016 BONIFACIO PAIGE Romero SOLAR ENERGY SYSTEM INSTALLER Ot 611.79 SYMPTOMS IN BREAST NEC 09/24/2016 [...] Ot Y99.8 OTHER EXTERNAL CAUSE STATUS 05/26/2017 DANNIE WOOD DO Ot M47.812 SPONDYLOSIS W/O MYELOPATHY OR RADICULOPA 05/26/2017 DANNIE WOOD DO Ot S19.9XXA UNSPECIFIED INJURY OF NECK, INITIAL ENCO 05/26/2017 DANNIE WOOD DO Ot X58.XXXA EXPOSURE TO OTHER SPECIFIED FACTORS, INI 05/26/2017 DANNIE WOOD DO Ot Y99.8 OTHER EXTERNAL CAUSE STATUS 05/27/2017 DANNIE WOOD DO, Ot M47.812 SPONDYLOSIS W/O MYELOPATHY OR RADICULOPA 05/27/2017 DANNIE WOOD DO Ot S19.9XXA UNSPECIFIED INJURY OF NECK, INITIAL ENCO 05/27/2017 DANNIE WOOD DO Ot X58.XXXA EXPOSURE TO OTHER SPECIFIED FACTORS, INI 05/27/2017 DANNIE WOOD DO Ot Y99.8 OTHER EXTERNAL CAUSE STATUS 09/21/2017 DANNIE WOOD DO Ot M48.07 SPINAL STENOSIS, LUMBOSACRAL REGION 09/21/2017 DANNIE WOOD DO Ot M51.34 OTHER INTERVERTEBRAL DISC DEGENERATION, 09/21/2017 DANNIE WOOD DO Ot Z98.1 ARTHRODESIS STATUS 12/24/2017 RYDER DIXON APRN Ot F32.9 MAJOR DEPRESSIVE DISORDER, SINGLE EPISOD 12/24/2017 RYDER DIXON APRN Ot F41.9 ANXIETY DISORDER, UNSPECIFIED 12/24/2017 RYDER DIXON APRN Ot I10 ESSENTIAL (PRIMARY) HYPERTENSION 12/24/2017 RYDER DIXON APRN Ot I48.91 UNSPECIFIED ATRIAL FIBRILLATION 12/24/2017 RYDER DIXON APRN Ot K21.9 GASTRO-ESOPHAGEAL REFLUX DISEASE WITHOUT 12/24/2017 RYDER DIXON APRN Ot L76.34 POSTPROC SEROMA OF SKIN, SUBCU FOLLOWING 12/24/2017 RYDER DIXON APRN Ot M54.5 LOW BACK PAIN 12/24/2017 RYDER DIXON APRN Ot Z78.0 ASYMPTOMATIC MENOPAUSAL STATE 12/24/2017 RYDER DIXON APRN Ot Z90.49 ACQUIRED ABSENCE OF OTHER SPECIFIED PART 12/24/2017 RYDER DIXON APRN Ot Z90.710 ACQUIRED ABSENCE OF BOTH CERVIX AND UTER 12/24/2017 RYDER DIXON APRN Ot Z98.890 OTHER SPECIFIED POSTPROCEDURAL STATES 12/27/2017 RYDER DIXON APRN Ot F32.9 MAJOR DEPRESSIVE DISORDER, SINGLE EPISOD 12/27/2017 RYDER DIXON APRN Ot F41.9 ANXIETY DISORDER, UNSPECIFIED 12/27/2017 RYDER DIXON APRN Ot I10 ESSENTIAL (PRIMARY) HYPERTENSION 12/27/2017 RYDER DIXON APRN Ot I48.91 UNSPECIFIED ATRIAL FIBRILLATION 12/27/2017 RYDER DIXON APRN Ot K21.9 GASTRO-ESOPHAGEAL REFLUX DISEASE WITHOUT 12/27/2017 RYDER DIXON APRN Ot L76.34 POSTPROC SEROMA OF SKIN, SUBCU FOLLOWING 12/27/2017 RYDER DIXON APRN Ot M54.5 LOW BACK PAIN 12/27/2017 RYDER DIXON APRN Ot Z78.0 ASYMPTOMATIC MENOPAUSAL STATE 12/27/2017 RYDER DIXON APRN Ot Z90.49 ACQUIRED ABSENCE OF OTHER SPECIFIED PART 12/27/2017 RYDER DIXON APRN Ot Z90.710 ACQUIRED ABSENCE OF BOTH CERVIX AND UTER 12/27/2017 RYDER DIXON APRN Ot Z98.890 OTHER SPECIFIED POSTPROCEDURAL STATES 03/18/2018 DANNIE WOOD DO Ot Z12.31 ENCNTR SCREEN MAMMOGRAM FOR MALIGNANT NE 03/18/2018 DANNIE WOOD DO Ot Z12.31 ENCNTR SCREEN MAMMOGRAM FOR MALIGNANT NE 04/08/2018 DANNIE WOOD DO Ot Z12.31 ENCNTR SCREEN MAMMOGRAM FOR MALIGNANT NE 05/25/2018 DANNIE WOOD DO Ot R10.13 EPIGASTRIC PAIN 06/21/2018 DANNIE WOOD DO, Ot R10.13 EPIGASTRIC PAIN Procedures Code Description Performed By Performed On 81.54 TOTAL KNEE REPLACEMENT 07/19/2012 Results Test Result Range Complete blood count (CBC) with automated white blood cell (WBC) differential - 12/24/17 13:47 Blood leukocytes automated count (number/volume) 11.4 10*3/uL 4.3-11.0 Blood erythrocytes automated count (number/volume) 4.43 10*6/uL 4.35-5.85 Venous blood hemoglobin measurement (mass/volume) 13.1 g/dL 11.5-16.0 Blood hematocrit (volume fraction) 40 % 35-52 Automated erythrocyte mean corpuscular volume 91 [foz_us] 80-99 Automated erythrocyte mean corpuscular hemoglobin (mass per erythrocyte) 30 pg 25-34 Automated erythrocyte mean corpuscular hemoglobin concentration measurement ( mass/volume) 33 g/dL 32-36 Automated erythrocyte distribution width ratio 13.2 % 10.0-14.5 Automated blood platelet count (count/volume) 187 10*3/uL 130-400 Automated blood platelet mean volume measurement 10.7 [foz_us] 7.4-10.4 Automated blood neutrophils/100 leukocytes 70 % 42-75 Automated blood lymphocytes/100 leukocytes 15 % 12-44 Blood monocytes/100 leukocytes 13 % 0-12 Automated blood eosinophils/100 leukocytes 2 % 0-10 Automated blood basophils/100 leukocytes 0 % 0-10 Blood neutrophils automated count (number/volume) 8.0 10*3 1.8-7.8 Blood lymphocytes automated count (number/volume) 1.7 10*3 1.0-4.0 Blood monocytes automated count (number/volume) 1.4 10*3 0.0-1.0 Automated eosinophil count 0.2 10*3/uL 0.0-0.3 Automated blood basophil count (count/volume) 0.0 10*3/uL 0.0-0.1 Whole blood basic metabolic panel - 12/24/17 13:47 Serum or plasma sodium measurement (moles/volume) 140 mmol/L 135-145 Serum or plasma potassium measurement (moles/volume) 4.0 mmol/L 3.6-5.0 Serum or plasma chloride measurement (moles/volume) 109 mmol/L 98-107 Carbon dioxide 23 mmol/L 21-32 Serum or plasma anion gap determination (moles/volume) 8 mmol/L 5-14 Serum or plasma urea nitrogen measurement (mass/volume) 21 mg/dL 7-18 Serum or plasma creatinine measurement (mass/volume) 1.13 mg/dL 0.60-1.30 Serum or plasma urea nitrogen/creatinine mass ratio 19 NRG Serum or plasma creatinine measurement with calculation of estimated glomerular filtration rate 47 NRG Serum or plasma glucose measurement (mass/volume) 106 mg/dL 70-105 Serum or plasma calcium measurement (mass/volume) 9.2 mg/dL 8.5-10.1 Gram stain microscopy - 12/24/17 14:58 GRAM STAIN RESULT RARE GRAM POSITIVE COCCI NRG Bacterial body fluid culture - 12/24/17 14:58 FREE TEXT EXTERNAL SENSITIVITY REPORTED AT 1752, 12-25-17 NRG QUANTITY OF GROWTH Moderate Growth NRG MRSA AGAR Screening test for MRSA is NEGATIVE (Final to follow) NR Bacterial body fluid culture [id number] [facility] Bacterial susceptibility panel - 12/24/17 14:58 Oxacillin susceptibility test by minimum inhibitory concentration < = NRG Gentamicin susceptibility test by minimum inhibitory concentration < = NRG Clindamycin susceptibility test by minimum inhibitory concentration <= NRG Erythromycin susceptibility test by minimum inhibitory concentration <= NRG Trimethoprim/sulfamethoxazole susceptibility test by minimum inhibitoryconcentration S NRG Vancomycin susceptibility test by minimum inhibitory concentration 1 NRG Levofloxacin susceptibility test by minimum inhibitory concentration <= NRG Rifampin susceptibility test by minimum inhibitory concentration <= NRG Tetracycline susceptibility test by minimum inhibitory concentration <= NRG Encounters ACCT No. Visit Date/Time Discharge Status Pt. Type Provider Facility Loc./Unit Complaint [id number] 09/04/2014 16:37:00 09/04/2014 23:59:59 CLS Outpatient MANDY BLOUNT DO [id number] 05/24/2018 07:45:00 05/24/2018 23:59:59 CLS Outpatient DANNIE WOOD DO [facility] RAD R10.13 EPIGASTRIC PAIN [id number] 03/17/2018 13:46:00 03/17/2018 23:59:59 CLS Outpatient DANNIE WOOD DO [facility] RAD SCREEN [id number] 02/09/2018 14:02:00 02/09/2018 23:59:59 CLS Preadmit DANNIE WOOD DO [facility] RAD SCREENING [id number] 12/24/2017 12:17:00 12/24/2017 16:11:00 DIS Emergency RYDER DIXON APRN [facility] ER LOWER BACK SWELLING [id number] 04/06/2017 09:31:00 04/06/2017 23:59:59 CLS Outpatient DANNIE WOOD DO [facility] RAD M48.06 [id number] 03/11/2017 17:26:00 03/11/2017 23:59:59 CLS Outpatient DANNIE WOOD DO [facility] RAD TRAUMA [id number] 12/15/2016 10:31:00 12/15/2016 23:59:59 CLS Outpatient DANNIE WOOD DO [facility] RAD N64.4 [id number] 11/23/2016 09:53:00 11/23/2016 23:59:59 CLS Preadmit RODNEY ROSALES MD [facility] REHAB R TKA [id number] 09/28/2016 11:15:00 09/28/2016 23:59:59 CLS Preadmit PAIGE WOOD [facility] RAD SCREENING [id number] 07/27/2016 06:24:00 07/27/2016 09:30:00 DIS Outpatient RE AVILES MD [facility] SDC HISTORY OF POLYPS [id number] 07/23/2016 05:38:00 07/23/2016 23:59:59 CLS Outpatient RE AVILES MD [facility] PREOP HISTORY OF POLYPS [id number] 09/20/2015 12:57:00 09/20/2015 23:59:59 CLS Outpatient PAIGE WOOD [facility] RAD SCREENING [id number] 03/07/2015 15:55:00 03/07/2015 21:29:00 DIS Emergency ABENA PAUL, OPAL Mars [facility] ER CP [id number] 01/10/2015 12:59:00 01/10/2015 23:59:59 CLS Outpatient NGUYEN MD, GAYLA Romero [facility] CARD PALP [id number] 11/09/2014 20:03:00 11/10/2014 06:35:00 DIS Outpatient PAIGE WOOD [facility] SLEEP OBSERVED APNEAS SNORING CHOKING HTN HYPOXIA [id number] 07/18/2014 09:20:00 07/18/2014 12:42:00 DIS Outpatient GUILLERMO BURGOS MD [facility] SDC SCREENING [id number] 07/12/2014 07:27:00 07/12/2014 23:59:59 CLS Outpatient GUILLERMO BURGOS MD [facility] PREOP SCREENING [id number] 07/05/2014 14:22:00 07/05/2014 23:59:59 CLS Outpatient DANNIE WOOD DO [facility] RAD ROUTINE [id number] 07/07/2013 12:14:00 07/07/2013 23:59:59 CLS Outpatient ODALISINGS PAIGE Romero APRN [facility] RAD NIPPLE DISHCARGE, PAIN [id number] 11/06/2014 15:20:00 Document Registration [id number] 09/23/2012 13:53:00 Document Registration [id number] 09/15/2012 13:49:00 Document Registration [id number] 07/19/2012 13:00:00 Document Registration [id number] 07/12/2012 08:14:00 Document Registration [id number] 06/02/2012 12:48:00 Document Registration [id number] 09/17/2011 13:54:00 Document Registration [id number] 04/22/2011 10:24:00 Document Registration [id number] 04/16/2011 13:05:00 Document Registration [id number] 04/13/2011 15:45:00 Document Registration [id number] 03/23/2011 09:33:00 Document Registration [id number] 08/28/2010 08:50:00 Document Registration
--- NOTE | 2018-07-03 15:27 | ED Fall/Injury ---
General Chief Complaint: Trauma-Non Activation Stated Complaint: FALL,KNOT ON HEAD,LACERATION ON L ARM,PAIN,DIZZY Nursing Triage Note: PAIN TO LOWER BACK, BACK OF HEAD, AND LEFT ARM/ELBOW. Source: patient, spouse Exam Limitations: no limitations History of Present Illness Date Seen by Provider: Jul 03, 2018 Time Seen by Provider: 15:17 Initial Comments Patient's very pleasant young-appearing 72-year-old female with a present history of 3 hours prior to arrival she had taken a fall down 3 steps. She says she's had a history of 3 back surgeries in the past and social is been a little unstable on her feet she's not having any particular vertigo dizziness or weakness. She denies any dysuria fevers, chills. She fell straight back on her back on the concrete has a large knot on the back of her head and large knot on her left medial elbow. Ice on the knot on the back or head for about an hour and it went down significant only helping her pain. She uses hydrocodone 10 mg every 1 to days as needed for chronic pain. She's not had any pain medicine today. She says she was having quite a bit of pain in her back but that got better just laying here. She is having a little dizziness right after the fall and the head injury as well as a headache however that improved with the ice and resting. Location Injury Occurred: HOME Allergies and Home Medications Allergies Coded Allergies: No Known Drug Allergies (Verified , 01/09/08) Home Medications Amlodipine Besylate 10 Mg Tablet, 10 MG PO HS, (Reported) Ascorbic Acid 1,000 Mg Tab.chew, 1,000 MG PO DAILY, (Reported) Cholecalciferol (Vitamin D3) 10,000 Unit Capsule, 20,000 UNIT PO DAILY, ( Reported) TAKES 2 (10,000 UNITS) Duloxetine Hcl 60 Mg Capsule.dr, 60 MG PO HS, (Reported) Hydrocodone Bit/Acetaminophen 1 Ea Tab, 1 TAB PO Q6H PRN for PAIN, (Reported) Isosorbide Mononitrate 20 Mg Tablet, 20 MG PO DAILY, (Reported) [place] 3 Polyunsat Fatty Acids 1,000 Mg Cap, 1,000 MG PO DAILY, (Reported) Omeprazole 20 Mg Capsule.dr, 20 MG PO DAILY, (Reported) Raloxifene Hcl 60 Mg Tablet, 60 MG PO HS, (Reported) Sulfamethoxazole/Trimethoprim 1 Each Tablet, 1 EACH PO BID Prescribed by: RYDER DIXON on 12/24/17 1435 [Vitamin E] , 1 CAP PO DAILY, (Reported) Patient Home Medication List Home Medication List Reviewed: Yes Review of Systems Review of Systems Constitutional: No chills, No diaphoresis Eyes: Denies Blindness, Denies Blurred Vision Ears, Nose, Mouth, Throat: denies ear pain, denies ear discharge Respiratory: No cough, No short of breath Cardiovascular: No chest pain, No palpitations Gastrointestinal: No abdominal pain, No constipation, No diarrhea, No nausea Genitourinary: No discharge, No dysuria Past Dobpsss-Dbyphv-Vtczpp Hx Patient Social History Alcohol Use: Denies Use Recreational Drug Use: No Smoking Status: Never a Smoker 2nd Hand Smoke Exposure: No Recent Foreign Travel: No Contact w/Someone Who Travel: No Recent Infectious Disease Expo: No Recent Hopitalizations: Yes (BACK SURG) Immunizations Up To Date Tetanus Booster (TDap): More than 5yrs Date of Pneumonia Vaccine: Nov 06, 2010 Date of Influenza Vaccine: Jul 23, 2014 Seasonal Allergies Seasonal Allergies: No Past Medical History Surgeries: Yes (APPY,BREAST SX X 2, BACK, KNEE) Appendectomy, Hysterectomy, Joint Replacement, Orthopedic Respiratory: Yes (chronic hypoxia, uses oxygen intermittently at home) Cardiac: Yes (SKIPS BEATS, history of bigeminy and trigeminy, intermittent bradycardia.) Atrial Fibrillation, Hypertension, Palpitations Neurological: No 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 Physical Exam Vital Signs Vital Signs - First Documented 07/03/18 14:14 Temp 97.7 Pulse 90 Resp 22 B/P (MAP) 182/119 (140) Pulse Ox 96 Capillary Refill : Less Than 3 Seconds Height, Weight, BMI Height: 5'1.00" Weight: 220lbs. 0oz. 99.001413dg; 45.9 BMI Method:Stated General Appearance: WD/WN, no apparent distress HEENT: PERRL/EOMI, normal ENT inspection, TMs normal, pharynx normal, other ( negative for raccoon eyes or Herndon sign. Modest hematoma over the occiput) Neck: non-tender, full range of motion, supple, normal inspection Cardiovascular: normal peripheral pulses, regular rate, rhythm, no edema Respiratory: lungs clear, normal breath sounds, no respiratory distress, no accessory muscle use, other (right ribs laterally mild tender to palpation to base.) Gastrointestinal: normal bowel sounds, non tender, soft Back: normal inspection, no CVA tenderness, vertebral tenderness (mild, midline , diffuse) Extremities: normal range of motion, normal capillary refill, other (large medial hematoma on the left elbow about 4-5 cm diameter) 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, no motor/sensory deficits, alert, normal mood/affect, oriented x 3 Riaz Coma Score Best Eye Response: (4) Open Spontaneously Best Verbal Response: (5) Oriented Best Motor Response: (6) Obeys Commands [place] Total: 15 Progress/Results/Core Measures Results/Orders My Orders Orders - BERT ALEJANDRE Hydrocodone/Apap 10/325 Tablet (Lortab 1 (07/03/18 15:30) Ct Head/Cervical Spine Wo (07/03/18 15:21) Ribs, Right 2-3 Views (07/03/18 15:21) Elbow, Left, 3 Views (07/03/18 15:21) Lumbar Spine - 2-3 Views (07/03/18 15:21) Medications Given in ED Current Medications Medications Dose Ordered Sig/Mi Route Start Time Stop Time Status Last Admin Dose Admin Acetaminophen/ Hydrocodone Bitart 1 ea ONCE ONCE PO 07/03/18 15:30 07/03/18 15:31 DC 07/03/18 15:39 1 EA Vital Signs/I&O 07/03/18 14:14 Temp 97.7 Pulse 90 Resp 22 B/P (MAP) 182/119 (140) Pulse Ox 96 Blood Pressure Mean: 140 Diagnostic Imaging Diagonstic Imaging: Xray Plain Films/CT/US/NM/MRI: elbow Comments VIA [facility]. [place], [place] NAME: KEISHA RENTERIA REC#: [id number] PT STATUS: REG ER : 1945 PHYSICIAN: BERT ALEJANDRE MD ADMIT DATE: 07/03/18/ER Draft Date of Exam:07/03/18 ELBOW, LEFT, 3 VIEWS INDICATION: Left elbow pain. COMPARISON: None available. TECHNIQUE: Three views of the left elbow were obtained. FINDINGS: There is no definitive fracture. However, there does appear to be an elbow joint effusion. Marked degenerative changes are present. IMPRESSION: 1. No definitive fracture, but the presence of a joint effusion raises the possibility of a nondisplaced fracture. This effusion could also be due to severe degenerative arthritis. If deemed clinically warranted, CT of the left elbow could be performed to further evaluate for a nondisplaced fracture. Dictated on workstation # [id number] Dict: 07/03/18 1634 Trans: 07/03/18 1637 [id number] [id number] Interpreted by: JATIN JACOBO MD Electronically signed by: Reviewed: Reviewed by Nc Diagonstic Imaging: CT Plain Films/CT/US/NM/MRI: c-spine, head Comments VIA [facility]. [place], [place] NAME: KEISHA RENTERIA [facility] REC#: [id number] PT STATUS: REG ER : 1945 PHYSICIAN: BERT ALEJANDRE MD ADMIT DATE: 07/03/18/ER Draft Date of Exam:07/03/18 CT HEAD/CERVICAL SPINE WO PROCEDURE: CT head and CT cervical spine without contrast. TECHNIQUE: Multiple contiguous axial images were obtained through the brain and cervical spine without the use of intravenous contrast. Sagittal and coronal reformations through the cervical spine were then performed. INDICATION: Head pain after fall. COMPARISON: None available. FINDINGS: CT head: No intracranial hyperdense hemorrhage or space-occupying mass. No hydrocephalus or midline shift. Villanueva-white matter differentiation is preserved. Mild periventricular white matter hypoattenuation which is most compatible with chronic microvascular ischemic disease. No acute skull fracture. Large subcutaneous hematoma with associated scalp swelling in the left high parietal region. Paranasal sinuses and mastoid air cells are clear. CT cervical spine: There is no acute fracture in the visualized aspects of the temporal bone. No acute fracture or traumatic malalignment within the cervical spine no high-grade spinal stenosis. Degenerative anterolisthesis measuring approximately 2 mm at C2 on C3 and C3 on C4 is present. Hypertrophic degenerative changes are present at the atlantoaxial articulation resulting in sclerosis and cystic change of the dens. No cervical lymphadenopathy. Airway is patent. Subcentimeter nodule within the right thyroid lobe is stable since CT chest of 2007 and benign in nature. IMPRESSION: 1. No acute intracranial hemorrhage or skull fracture. Large high left parietal scalp hematoma and swelling. 2. No acute fracture or traumatic malalignment in the cervical spine. Dictated on workstation # [id number] Dict: 07/03/18 1617 Trans: 07/03/18 1623 PJE [id number] Interpreted by: JATIN JACOBO MD Electronically signed by: Reviewed: Reviewed by Me Diagonstic Imaging: Xray Plain Films/CT/US/NM/MRI: other (lumbar spine x-ray) Comments No acute fracture VIA [facility]. [place] NAME: MYRATERRAKEISHA Jeri [facility] REC#: [id number] PT STATUS: REG ER : 1945 PHYSICIAN: BERT ALEJANDRE MD ADMIT DATE: 07/03/18/ER Draft Date of Exam:07/03/18 LUMBAR SPINE - 2-3 VIEWS INDICATION: Back pain after fall. COMPARISON: None available. TECHNIQUE: Three views of the lumbar spine were obtained. FINDINGS: Severe levocurvature of the lumbar spine is present with prior postoperative changes including discectomies and interspinous spacer placement. Allowing for the severe curvature, there is no definitive compression deformity within the lumbar spine. SI joints are grossly normal although the sacrum is limited in assessment due to overlying bowel gas. Vascular calcifications of the aorta are noted. IMPRESSION: Severe levoscoliosis in the lumbar spine without definitive acute fracture by CT. Dictated on workstation # [id number] Dict: 07/03/18 1635 Trans: 07/03/18 1639 PJE [id number] Interpreted by: JATIN JACOBO MD Electronically signed by: Reviewed: Reviewed by Me, Discussed w/Radiologist Diagonstic Imaging: Xray Plain Films/CT/US/NM/MRI: chest (r ribs) Comments VIA [facility]. [place] NAME: KEISHA RENTERIA [facility] REC#: [id number] PT STATUS: REG ER : 1945 PHYSICIAN: BERT ALEJANDRE MD ADMIT DATE: 07/03/18/ER Draft Date of Exam:07/03/18 RIBS, RIGHT 2-3 VIEWS INDICATION: Right rib pain after fall. COMPARISON: None available. TECHNIQUE: Three views of the right ribs were obtained. FINDINGS AND IMPRESSION: 1. No right-sided pneumothorax, pleural effusion, or pulmonic contusion. 2. No acute displaced right-sided rib fracture. 3. Partially imaged postoperative changes in the scoliotic lumbar spine. Dictated on workstation # [id number] Dict: 07/03/18 1626 Trans: 07/03/18 1628 [id number] Interpreted by: JATIN JACOBO MD Electronically signed by: Reviewed: Reviewed by Me Departure Impression Primary Impression: Fall Qualified Codes: W19.XXXA - Unspecified fall, initial encounter Additional Impressions: Sprain of left elbow Qualified Codes: S53.402A - Unspecified sprain of left elbow, initial encounter Hematoma Disposition: 01 HOME, SELF-CARE Condition: Stable Departure-Patient Inst. Referrals: DANNIE WOOD DO (PCP/Family) Primary Care Physician Patient Instructions: HEMATOMA Add. Discharge Instructions: Keep ice on your elbow and head for 20 minutes every 4 hours for the first 3-4 days. Afterwards you can use Tylenol for the pain. If you have severe pain you can use your hydrocodone. Follow-up with the primary care provider as necessary. All discharge instructions reviewed with patient and/or family. Voiced understanding. BERT ALEJANDRE Jul 03, 2018 15:26
[2018-07-03] MEDS ORDERED: HYDROcodone/APAP 10 MG/325 MG (LORTAB) TAB PO ONE (15:30)
--- NOTE | 2018-07-03 16:23 | Diagnostic Imaging Report ---
PROCEDURE: CT head and CT cervical spine without contrast. TECHNIQUE: Multiple contiguous axial images were obtained through the brain and cervical spine without the use of intravenous contrast. Sagittal and coronal reformations through the cervical spine were then performed. INDICATION: Head pain after fall. COMPARISON: None available. FINDINGS: CT head: No intracranial hyperdense hemorrhage or space-occupying mass. No hydrocephalus or midline shift. Villanueva-white matter differentiation is preserved. Mild periventricular white matter hypoattenuation which is most compatible with chronic microvascular ischemic disease. No acute skull fracture. Large subcutaneous hematoma with associated scalp swelling in the left high parietal region. Paranasal sinuses and mastoid air cells are clear. CT cervical spine: There is no acute fracture in the visualized aspects of the temporal bone. No acute fracture or traumatic malalignment within the cervical spine no high-grade spinal stenosis. Degenerative anterolisthesis measuring approximately 2 mm at C2 on C3 and C3 on C4 is present. Hypertrophic degenerative changes are present at the atlantoaxial articulation resulting in sclerosis and cystic change of the dens. No cervical lymphadenopathy. Airway is patent. Subcentimeter nodule within the right thyroid lobe is stable since CT chest of 2007 and benign in nature. IMPRESSION: 1. No acute intracranial hemorrhage or skull fracture. Large high left parietal scalp hematoma and swelling. 2. No acute fracture or traumatic malalignment in the cervical spine. Dictated by: Dictated on workstation # [id number]
--- NOTE | 2018-07-03 16:29 | Diagnostic Imaging Report ---
INDICATION: Right rib pain after fall. COMPARISON: None available. TECHNIQUE: Three views of the right ribs were obtained. FINDINGS AND IMPRESSION: 1. No right-sided pneumothorax, pleural effusion, or pulmonic contusion. 2. No acute displaced right-sided rib fracture. 3. Partially imaged postoperative changes in the scoliotic lumbar spine. Dictated by: Dictated on workstation # [id number]
--- NOTE | 2018-07-03 16:38 | Diagnostic Imaging Report ---
INDICATION: Left elbow pain. COMPARISON: None available. TECHNIQUE: Three views of the left elbow were obtained. FINDINGS: There is no definitive fracture. However, there does appear to be an elbow joint effusion. Marked degenerative changes are present. IMPRESSION: 1. No definitive fracture, but the presence of a joint effusion raises the possibility of a nondisplaced fracture. This effusion could also be due to severe degenerative arthritis. If deemed clinically warranted, CT of the left elbow could be performed to further evaluate for a nondisplaced fracture. Dictated by: Dictated on workstation # [id number]
--- NOTE | 2018-07-03 16:40 | Diagnostic Imaging Report ---
INDICATION: Back pain after fall. COMPARISON: None available. TECHNIQUE: Three views of the lumbar spine were obtained. FINDINGS: Severe levocurvature of the lumbar spine is present with prior postoperative changes including discectomies and interspinous spacer placement. Allowing for the severe curvature, there is no definitive compression deformity within the lumbar spine. SI joints are grossly normal although the sacrum is limited in assessment due to overlying bowel gas. Vascular calcifications of the aorta are noted. IMPRESSION: Severe levoscoliosis in the lumbar spine without definitive acute fracture by CT. Dictated by: Dictated on workstation # [id number]
[2018-07-03 17:25] VITALS: BP 182/119
== END 2018-07-03 17:29 | disposition home or self-care (01) ==
LOC: EDUNIT# 13:36 → ER 13:38
DX: S53.402A Unspecified sprain of left elbow, initial encounter (principal); S00.83XA Contusion of other part of head, initial encounter; I48.91 Unspecified atrial fibrillation; I10 Essential (primary) hypertension; K21.9 Gastro-esophageal reflux disease without esophagitis; F41.9 Anxiety disorder, unspecified; F32.9 Major depressive disorder, single episode, unspecified; R40.2142 Coma scale, eyes open, spontaneous, at arrival to emergency department; R40.2252 Coma scale, best verbal response, oriented, at arrival to emergency department; R40.2362 Coma scale, best motor response, obeys commands, at arrival to emergency department; Z90.710 Acquired absence of both cervix and uterus; Z98.890 Other specified postprocedural states; W10.8XXA Fall (on) (from) other stairs and steps, initial encounter
CPT/HCPCS: 70450; 71100; 72100; 72125; 73080

== ENCOUNTER 2018-12-26 16:21 | Emergency (ER) | payer MEDICARE ==
[~2018-12-26] VITALS: Ht 154.9 cm; Wt 99.8 kg
--- OUTSIDE RECORDS SUMMARY | 2018-12-26 16:26 | XMS REPORT | Clinical Summary ---
Author Author [facility] Organization [facility] Address Unknown Phone Unavailable Care Team Providers Care Electronic Service Technician Name Role Phone Fer Delarosa MD PCP Source Comments Some departments are not documenting in the electronic medical record. If you do not see the information that you expected, contact Release of Information in the Health Information Management department at [phone] for further assistance in locating additional records.[facility] Allergies No Known Allergies Medications End Date Status Medication Sig Dispensed Refills Start Date Active HYDROcodone/acetaminophen Take 1 tablet 0 (+) (NORCO) 10/325 mg by mouth as tablet Needed for Pain Active omeprazole DR(+) Take 20 mg by 0 (PRILOSEC) 20 mg capsule mouth daily before breakfast. Active duloxetine DR (CYMBALTA) Take 60 mg by 0 60 mg capsule mouth daily. Active aspirin EC 81 mg tablet Take 81 mg by 0 mouth daily. Take with food. Active amLODIPine (NORVASC) 10 Take 10 mg by 0 mg tablet mouth daily. Active isosorbide mononitrate SR Take 60 mg by 0 (IMDUR) 60 mg tablet mouth every morning. Active raloxifene (EVISTA) 60 mg Take 60 mg by 0 tablet mouth daily before breakfast. Active simvastatin (ZOCOR) 40 mg Take 40 mg by 0 tablet mouth at bedtime daily. Active Problems Problem Noted Date Degenerative scoliosis in adult patient 08/25/2017 Spinal stenosis of lumbar region without neurogenic claudication 08/25/2017 Social History Date Tobacco Use Types Packs/Day Years Used Never Smoker Smokeless Tobacco: Never Used Sex Assigned at Date Recorded Not on file Industry Job Start Date Occupation Not on file Not on file Not on file Travel End Travel History Travel Start No recent travel history available. Last Filed Vital Signs Time Taken Vital Sign Reading 08/25/2017 8:55 AM [employer] Blood Pressure 146/88 08/25/2017 8:55 AM [employer] Pulse 104 - Temperature - - Respiratory Rate - 08/25/2017 8:55 AM [employer] Oxygen Saturation 94% - Inhaled Oxygen - Concentration 08/25/2017 8:55 AM [employer] Weight 103 kg (227 lb) 08/25/2017 8:55 AM [employer] Height 157.5 cm (5' 2") 08/25/2017 8:55 AM [employer] Body Mass Index 41.52 Plan of Treatment Health Maintenance Due Date Last Done Comments HEPATITIS C SCREENING 1945 PHYSICAL (COMPREHENSIVE) 1951 EXAM DTAP/TDAP VACCINES (1 - 1962 Tdap) BREAST CANCER SCREENING 1984 COLORECTAL CANCER 1994 SCREENING SHINGLES RECOMBINANT 1994 VACCINE (1 of 2) OSTEOPOROSIS 2009 SCREENING/MONITORING PNEUMONIA (PCV13/PPSV23) 2009 VACCINES (1 of 2 - PCV13) INFLUENZA VACCINE 05/23/2019 Results Not on filefrom Last 3 Months Insurance Type Payer Benefit Subscriber ID Effective Phone Address Plan / Dates Group Medicare MEDICARE MEDICARE xxxxxxxxxx 2007-P PART A AND resent B Medicare BCBS CLAUDIA BCBS xxxxxxxxxxxx 2017-P SUPPLEMENT resent Advance Directives Patient has advance care planning documents on file. For more information, please contact: [address] [address]
--- OUTSIDE RECORDS SUMMARY | 2018-12-26 16:27 | XMS REPORT | Continuity of Care Document ---
Author Organization Unknown Address Unknown Allergies Active Description Code Type Severity Reaction Onset Reported/Identified Relationship to Patient Clinical Status Yes No Known Drug Allergies [id number] Drug Allergy Mild N/A 01/09/2008 Medications There [...] DIVERTICULOSIS COLON (W/O MENT OF HEMORR 07/18/2014 AUBREY PAUL, GUILLERMO Ot V76.51 SCREEN MAL NEOP-COLON 07/26/2014 DANNIE WOOD DO Ot 793.82 07/26/2014 DANNIE WOOD DO Ot V76.12 09/04/2014 MANDY BLOUNT DO V05.8 ZOSTAVAX DX 11/07/2014 Ot 275.2 DIS MAGNESIUM METABOLISM 11/07/2014 Ot 401.0 MALIGNANT HYPERTENSION 11/07/2014 Ot 427.69 PREMATURE BEATS NEC 11/07/2014 Ot 780.57 UNSPECIFIED SLEEP APNEA 11/07/2014 Ot 786.50 CHEST PAIN NOS 11/07/2014 Ot V15.81 HX OF PAST NONCOMPLIANCE 11/10/2014 PAIGE WOOD MORTGAGE PROCESSING MANAGER Ot 327.23 OBSTRUCTIVE SLEEP APNEA (ADULT) (PEDIATR 11/10/2014 PAIGE WOOD MORTGAGE PROCESSING MANAGER Ot 786.09 RESPIRATORY ABNORM NEC 02/12/2015 GAYLA [...] NOS 03/07/2015 OPAL KRAFT MD Ot V58.69 OT MED,LT,CURRENT USE 09/20/2015 Ot V76.12 09/20/2015 Ot 724.02 09/20/2015 Ot 591 09/20/2015 Ot 592.1 09/20/2015 Ot 592.9 09/20/2015 Ot 733.90 09/20/2015 Ot V58.69 09/20/2015 Ot V76.12 09/20/2015 Ot 715.96 09/20/2015 Ot V72.63 09/20/2015 Ot V72.81 09/20/2015 Ot V72.83 09/20/2015 Ot 793.82 09/20/2015 Ot V76.12 09/20/2015 PAIGE VALDOVINOS ARTIFICIAL FLY TIER Ot 611.79 09/20/2015 DANNIE WOOD DO Ot 793.82 09/20/2015 DANNIE WOOD DO Ot V76.12 09/20/2015 AUBREY PAUL, GUILLERMO Ot V72.84 09/20/2015 NGUYEN MD, GAYLA Romero Ot 427.69 10/10/2015 PAIGE WOOD MORTGAGE PROCESSING MANAGER Ot Z12.31 07/24/2016 TRACI PAUL, RE Ledesma [...] MAMMO-MALIGN NEOPLASM OF SHEELA 07/27/2016 PAIGE VALDOVINOS ARTIFICIAL FLY TIER Ot 611.79 SYMPTOMS IN BREAST NEC 07/27/2016 DANNIE WOOD DO Ot 793.82 INCONCLUSIVE MAMMOGRAM 07/27/2016 DANNIE WOOD DO Ot V76.12 OTH SCREEN MAMMO-MALIGN NEOPLASM OF SHEELA 07/27/2016 AUBREY PAUL, GUILLERMO Ot V72.84 EXAM PRE-OPERATIVE NOS 07/27/2016 NGUYEN MD, GAYLA Romero Ot 427.69 PREMATURE BEATS NEC 07/27/2016 PRUDENCE WOODAC Cunningham MORTGAGE PROCESSING MANAGER Ot Z12.31 ENCNTR SCREEN MAMMOGRAM FOR MALIGNANT NE 07/27/2016 TRACI PAUL, RE Ledesma Ot Z01.818 ENCOUNTER FOR OTHER PREPROCEDURAL EXAMIN 07/27/2016 TRACI PAUL, RE Ledesma Ot Z86.010 PERSONAL HISTORY OF COLONIC POLYPS 07/27/2016 TRACI PAUL, RE Ledesma Ot K57.90 DVRTCLOS OF INTEST, PART UNSP, W/O PERF 07/27/2016 TRACI PAUL, RE Ledesma Ot Z09 ENCNTR FOR F/U EXAM AFT TRTMT FOR COND O 07/27/2016 RE AVILES MD Ot Z86.010 PERSONAL HISTORY OF COLONIC POLYPS [...] OTH SCREEN MAMMO-MALIGN NEOPLASM OF SHEELA 09/24/2016 LISA VALDOVINOSIA Nick ARTIFICIAL FLY TIER Ot 611.79 SYMPTOMS IN BREAST NEC 09/24/2016 [...] OTHER PREPROCEDURAL EXAMIN 09/24/2016 TRACI PAUL, RE Ldeesma Ot Z86.010 PERSONAL HISTORY OF COLONIC POLYPS [...] BOTH CERVIX AND UTER 12/24/2017 RYDER DIXON ARTIFICIAL FLY TIER Ot Z98.890 OTHER SPECIFIED POSTPROCEDURAL STATES 12/27/2017 RYDER DIXON APRN Ot F32.9 MAJOR DEPRESSIVE DISORDER, SINGLE EPISOD 12/27/2017 RYDER DIXON APRN Ot F41.9 ANXIETY DISORDER, UNSPECIFIED 12/27/2017 RYDER DIXON ARTIFICIAL FLY TIER Ot I10 ESSENTIAL (PRIMARY) HYPERTENSION 12/27/2017 RYDER [...] Ot R10.13 EPIGASTRIC PAIN 06/21/2018 DANNIE WOOD DO Ot R10.13 EPIGASTRIC PAIN 07/03/2018 BERT ALEJANDRE MD Ot F32.9 MAJOR DEPRESSIVE DISORDER, SINGLE EPISOD 07/03/2018 BERT ALEJANDRE MD Ot F41.9 ANXIETY DISORDER, UNSPECIFIED 07/03/2018 BERT ALEJANDRE MD Ot I10 ESSENTIAL (PRIMARY) HYPERTENSION 07/03/2018 BERT ALEJANDRE MD Ot I48.91 UNSPECIFIED ATRIAL FIBRILLATION 07/03/2018 BERT ALEJANDRE MD Ot K21.9 GASTRO-ESOPHAGEAL REFLUX DISEASE WITHOUT 07/03/2018 BERT ALEJANDRE MD Ot R40.2142 COMA SCALE, EYES OPEN, SPONTANEOUS, EMR 07/03/2018 BERT ALEJANDRE MD Ot R40.2252 COMA SCALE, BEST VERBAL RESPONSE, ORIENT 07/03/2018 BERT ALEJANDRE MD Ot R40.2362 COMA SCALE, BEST MOTOR RESPONSE, OBEYS C 07/03/2018 BERT ALEJANDRE MD Ot S00.83XA CONTUSION OF OTHER PART OF HEAD, INITIAL 07/03/2018 BERT ALEJANDRE MD Ot S53.402A UNSPECIFIED SPRAIN OF LEFT ELBOW, INITIA 07/03/2018 BERT ALEJANDRE MD Ot W10.8XXA FALL (ON) (FROM) OTHER STAIRS AND STEPS, 07/03/2018 BERT ALEJANDRE MD Ot Z90.710 ACQUIRED ABSENCE OF BOTH CERVIX AND UTER 07/03/2018 BERT ALEJANDRE MD Ot Z98.890 OTHER SPECIFIED POSTPROCEDURAL STATES 07/05/2018 BERT ALEJANDRE MD Ot F32.9 MAJOR DEPRESSIVE DISORDER, SINGLE EPISOD 07/05/2018 BERT ALEJANDRE MD Ot F41.9 ANXIETY DISORDER, UNSPECIFIED 07/05/2018 BERT ALEJANDRE MD Ot I10 ESSENTIAL (PRIMARY) HYPERTENSION 07/05/2018 BERT ALEJANDRE MD Ot I48.91 UNSPECIFIED ATRIAL FIBRILLATION 07/05/2018 BERT ALEJANDRE MD Ot K21.9 GASTRO-ESOPHAGEAL REFLUX DISEASE WITHOUT 07/05/2018 BERT ALEJANDRE MD Ot R40.2142 COMA SCALE, EYES OPEN, SPONTANEOUS, EMR 07/05/2018 BERT ALEJANDRE MD Ot R40.2252 COMA SCALE, BEST VERBAL RESPONSE, ORIENT 07/05/2018 BERT ALEJANDRE MD Ot R40.2362 COMA SCALE, BEST MOTOR RESPONSE, OBEYS C 07/05/2018 BERT ALEJANDRE MD Ot S00.83XA CONTUSION OF OTHER PART OF HEAD, INITIAL 07/05/2018 BERT ALEJANDRE MD Ot S53.402A UNSPECIFIED SPRAIN OF LEFT ELBOW, INITIA 07/05/2018 BERT ALEJANDRE MD Ot W10.8XXA FALL (ON) (FROM) OTHER STAIRS AND STEPS, 07/05/2018 BERT ALEJANDRE MD Ot Z90.710 ACQUIRED ABSENCE OF BOTH CERVIX AND UTER 07/05/2018 BERT ALEJANDRE MD Ot Z98.890 OTHER SPECIFIED POSTPROCEDURAL STATES 07/09/2018 BERT ALEJANDRE MD Ot F32.9 MAJOR DEPRESSIVE DISORDER, SINGLE EPISOD 07/09/2018 BERT ALEJANDRE MD Ot F41.9 ANXIETY DISORDER, UNSPECIFIED 07/09/2018 BERT ALEJANDRE MD Ot I10 ESSENTIAL (PRIMARY) HYPERTENSION 07/09/2018 BERT ALEJANDRE MD Ot I48.91 UNSPECIFIED ATRIAL FIBRILLATION 07/09/2018 BERT ALEJANDRE MD Ot K21.9 GASTRO-ESOPHAGEAL REFLUX DISEASE WITHOUT 07/09/2018 BERT ALEJANDRE MD Ot R40.2142 COMA SCALE, EYES OPEN, SPONTANEOUS, EMR 07/09/2018 BERT ALEJANDRE MD Ot R40.2252 COMA SCALE, BEST VERBAL RESPONSE, ORIENT 07/09/2018 BERT ALEJANDRE MD Ot R40.2362 COMA SCALE, BEST MOTOR RESPONSE, OBEYS C 07/09/2018 BERT ALEJANDRE MD Ot S00.83XA CONTUSION OF OTHER PART OF HEAD, INITIAL 07/09/2018 BERT ALEJANDRE MD Ot S53.402A UNSPECIFIED SPRAIN OF LEFT ELBOW, INITIA 07/09/2018 BERT ALEJANDRE MD Ot W10.8XXA FALL (ON) (FROM) OTHER STAIRS AND STEPS, 07/09/2018 BERT ALEJANDRE MD Ot Z90.710 ACQUIRED ABSENCE OF BOTH CERVIX AND UTER 07/09/2018 BERT ALEJANDRE MD Ot Z98.890 OTHER SPECIFIED POSTPROCEDURAL STATES Procedures Code Description Performed By Performed On [...] FREE TEXT EXTERNAL SENSITIVITY REPORTED AT 1752, 518 NRG QUANTITY OF GROWTH Moderate Growth NRG MRSA AGAR Screening test for MRSA is NEGATIVE (Final to follow) NR Bacterial body fluid culture [id number] [facility] Bacterial susceptibility panel - 12/24/17 14:58 Oxacillin [...] Status Pt. Type Provider Facility Loc./Unit Complaint [id number] 09/04/2014 16:37:00 09/04/2014 23:59:59 CLS Outpatient MANDY BLOUNT DO [id number] 07/03/2018 13:38:00 07/03/2018 17:29:00 DIS Emergency BERT ALEJANDRE MD [facility] ER FALL,KNOT ON HEAD, LACERATION ON L ARM,PAIN,DIZZY [id number] 05/24/2018 07:45:00 05/24/2018 23:59:59 CLS Outpatient DANNIE WOOD DO [facility] RAD R10.13 EPIGASTRIC PAIN [id number] 03/17/2018 13:46:00 03/17/2018 23:59:59 CLS Outpatient DANNIE WOOD DO [facility] RAD SCREEN [id number] 02/09/2018 14:02:00 02/09/2018 23:59:59 CLS Preadmit DANNIE WOOD DO [facility] RAD SCREENING [id number] 12/24/2017 12:17:00 12/24/2017 16:11:00 DIS Emergency RYDER DIXON APRN [facility] ER LOWER BACK SWELLING [id number] 04/06/2017 09:31:00 04/06/2017 23:59:59 CLS Outpatient DANNIE WOOD DO [facility] RAD M48.06 [id number] 03/11/2017 17:26:00 03/11/2017 23:59:59 CLS Outpatient DANNIE WOOD DO [facility] RAD TRAUMA [id number] 12/15/2016 10:31:00 12/15/2016 23:59:59 CLS Outpatient DANNIE WOOD DO [facility] RAD N64.4 [id number] 11/23/2016 09:53:00 11/23/2016 23:59:59 CLS Preadmit RODNEY ROSALES MD [facility] REHAB R TKA [id number] 09/28/2016 11:15:00 09/28/2016 23:59:59 CLS Preadmit PAIGE WOOD MORTGAGE PROCESSING MANAGER [facility] RAD SCREENING [id number] 07/27/2016 06:24:00 07/27/2016 09:30:00 DIS Outpatient RE AVILES MD [facility] SDC HISTORY OF POLYPS [id number] 07/23/2016 05:38:00 07/23/2016 23:59:59 CLS Outpatient RE AVILES MD [facility] PREOP HISTORY OF POLYPS [id number] 09/20/2015 12:57:00 09/20/2015 23:59:59 CLS Outpatient PAIGE WOOD MORTGAGE PROCESSING MANAGER [facility] RAD SCREENING [id number] 03/07/2015 15:55:00 03/07/2015 21:29:00 DIS Emergency ABENA PAUL, OPAL Mars [facility] ER CP [id number] 01/10/2015 12:59:00 01/10/2015 23:59:59 CLS Outpatient NGUYEN MD, GAYLA Romero [facility] CARD PALP [id number] 11/09/2014 20:03:00 11/10/2014 06:35:00 DIS Outpatient PAIGE WOOD MORTGAGE PROCESSING MANAGER [facility] SLEEP OBSERVED APNEAS SNORING CHOKING HTN HYPOXIA [id number] 07/18/2014 09:20:00 07/18/2014 12:42:00 DIS Outpatient GUILLERMO BURGOS MD [facility] SDC SCREENING [id number] 07/12/2014 07:27:00 07/12/2014 23:59:59 CLS Outpatient GUILLERMO BURGOS MD [facility] PREOP SCREENING [id number] 07/05/2014 14:22:00 07/05/2014 23:59:59 CLS Outpatient DANNIE WOOD DO [facility] RAD ROUTINE [id number] 07/07/2013 12:14:00 07/07/2013 23:59:59 CLS Outpatient ODALISINGSLISACHHAYA Romero APRN [facility] RAD NIPPLE DISHCARGE, PAIN [id number] 11/06/2014 15:20:00 Document Registration [id number] 09/23/2012 13:53:00 Document Registration [id number] 09/15/2012 13:49:00 Document Registration [id number] 07/19/2012 13:00:00 Document Registration [id number] 07/12/2012 08:14:00 Document Registration [id number] 06/02/2012 12:48:00 Document Registration [id number] 09/17/2011 13:54:00 Document Registration [id number] 04/22/2011 10:24:00 Document Registration [id number] 04/16/2011 13:05:00 Document Registration [id number] 04/13/2011 15:45:00 Document Registration [id number] 03/23/2011 09:33:00 Document Registration [id number] 08/28/2010 08:50:00 Document Registration
[2018-12-26] MEDS ORDERED: NS IV 1000 ML 1,000 ML IV SCH (16:50)
[2018-12-26 17:07] LABS: BASOPHILS # (AUTO) 0.1 10^3/uL (0.0-0.1); BASOPHILS % (AUTO) 0 % (0-10); EOSINOPHILS # (AUTO) 0.6 10^3/uL (0.0-0.3); EOSINOPHILS % (AUTO) 4 % (0-10); HEMATOCRIT 45 % (35-52); HEMOGLOBIN 14.6 G/DL (11.5-16.0); LYMPHOCYTES # (AUTO) 3.4 X 10^3 (1.0-4.0); LYMPHOCYTES % (AUTO) 26 % (12-44); MEAN CORPUSCULAR HEMOGLOBIN 28 PG (25-34); MEAN CORPUSCULAR HGB CONC 33 G/DL (32-36); MEAN CORPUSCULAR VOLUME 87 FL (80-99); MEAN PLATELET VOLUME 10.7 FL (7.4-10.4); MONOCYTES # (AUTO) 1.2 X 10^3 (0.0-1.0); MONOCYTES % (AUTO) 9 % (0-12); NEUTROPHILS # (AUTO) 7.9 X 10^3 (1.8-7.8); NEUTROPHILS % (AUTO) 61 % (42-75); PLATELET COUNT 248 10^3/uL (130-400); PROTHROMBIN TIME PATIENT 13.7 SEC (12.2-14.7); RED CELL DISTRIBUTION WIDTH 14.2 % (10.0-14.5); WHITE BLOOD COUNT 13.1 10^3/uL (4.3-11.0)
[2018-12-26 17:17] LABS: ALBUMIN 3.8 GM/DL (3.2-4.5); BILIRUBIN,TOTAL 0.4 MG/DL (0.1-1.0); CALCIUM 9.5 MG/DL (8.5-10.1); CREATININE SERUM 1.72 MG/DL (0.60-1.30); POTASSIUM 4.5 MMOL/L (3.6-5.0); TOTAL PROTEIN 7.1 GM/DL (6.4-8.2)
--- NOTE | 2018-12-26 17:24 | ED General ---
General Chief Complaint: General Problems/Pain Stated Complaint: WEAKNESS Nursing Triage Note: PT STATES GENERAL WEAKNESS FOR ABOUT 10 DAYS, HAS BEEN SEEN BY DR. WOOD, TAKEN A Z PACK, SEEN IN URGENT CARE YESTERDAY. Nursing Sepsis Screen: No Definite Risk Source of Information: Patient Exam Limitations: No Limitations History of Present Illness Date Seen by Provider: December 26, 2018 Time Seen by Provider: 16:40 Initial Comments Here with report of generalized weakness that is worsened over the last week and a half. She was treated for possible pneumonia with Omnicef and then now is currently on Levaquin for one day. She has been seen by her provider twice and [facility] urgent care yesterday once. Weakness is worse today so presents here. He did have fairly significant cough and some shortness of breath but that has actually improved since yesterday. She did receive Rocephin 1 g IM yesterday as well. Denies nausea, vomiting or diarrhea. Does have decreased appetite and decreased intake of by mouth fluids. Timing/Duration: 1 Week, Changing Over Time, Getting Worse Severity: Moderate Associated Systoms: No Chest Pain; Cough; No Fever/Chills, No Nausea/Vomiting; Shortness of Air, Weakness Allergies and Home Medications Allergies Coded Allergies: No Known Drug Allergies (Verified , 01/09/08) Home Medications Amlodipine Besylate 10 Mg Tablet, 10 MG PO HS, (Reported) Ascorbic Acid 1,000 Mg Tab.chew, 1,000 MG PO DAILY, (Reported) Cholecalciferol (Vitamin D3) 10,000 Unit Capsule, 20,000 UNIT PO DAILY, ( Reported) TAKES 2 (10,000 UNITS) Duloxetine Hcl 60 Mg Capsule.dr, 60 MG PO HS, (Reported) Hydrocodone Bit/Acetaminophen 1 Ea Tab, 1 TAB PO Q6H PRN for PAIN, (Reported) Isosorbide Mononitrate 20 Mg Tablet, 20 MG PO DAILY, (Reported) [place] 3 Polyunsat Fatty Acids 1,000 Mg Cap, 1,000 MG PO DAILY, (Reported) Omeprazole 20 Mg Capsule.dr, 20 MG PO DAILY, (Reported) Raloxifene Hcl 60 Mg Tablet, 60 MG PO HS, (Reported) Sulfamethoxazole/Trimethoprim 1 Each Tablet, 1 EACH PO BID Prescribed by: RYDER DIXON on 12/24/17 1435 [Vitamin E] , 1 CAP PO DAILY, (Reported) Patient Home Medication List Home Medication List Reviewed: Yes Review of Systems Review of Systems Constitutional: see HPI; No chills, No fever EENTM: no symptoms reported Respiratory: see HPI; No hemoptysis, No wheezing Cardiovascular: No chest pain, No edema Gastrointestinal: No abdominal pain, No nausea, No vomiting Genitourinary: No dysuria, No pain : No Musculoskeletal: no symptoms reported Skin: no symptoms reported All Other Systems Reviewed Negative Unless Noted: Yes Past Vpzelxh-Yomryi-Pjclva Hx Past Med/Social Hx: Reviewed Nursing Past Med/Soc Hx Patient Social History Alcohol Use: Denies Use Recreational Drug Use: No Smoking Status: Never a Smoker 2nd Hand Smoke Exposure: No Recent Foreign Travel: No Contact w/Someone Who Travel: No Recent Infectious Disease Expo: No Recent Hopitalizations: No (BACK SURG 2018) Immunizations Up To Date Tetanus Booster (TDap): More than 5yrs Date of Pneumonia Vaccine: May 26, 2017 Date of Influenza Vaccine: Jul 23, 2014 Seasonal Allergies Seasonal Allergies: No Past Medical History Surgeries: Yes (APPY,BREAST SX X 2, BACK, KNEE) Appendectomy, Hysterectomy, Joint Replacement, Orthopedic Respiratory: Yes (chronic hypoxia, uses oxygen intermittently at home) Cardiac: Yes (SKIPS BEATS, history of bigeminy and trigeminy, intermittent bradycardia.) Atrial Fibrillation, Hypertension, Palpitations Neurological: No 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 Physical Exam-Suspected Sepsis Physical Exam Vital Signs Vital Signs - First Documented 12/26/18 16:30 Temp 98.4 Pulse 91 Resp 20 B/P (MAP) 185/92 (123) Pulse Ox 97 O2 Delivery Room Air Capillary Refill : Less Than 3 Seconds Blood Pressure Mean: 123 Height, Weight, BMI Height: 5'1.00" Weight: 220lbs. 0oz. 99.537227yg; 45.9 BMI Method:Stated General Appearance: No Apparent Distress, WD/WN HEENT: PERRL/EOMI, Pharynx Normal Neck: Non Tender, Supple Respiratory: Lungs Clear, Normal Breath Sounds Cardiovascular: Regular Rate, Rhythm, No Murmur Gastrointestinal: Non Tender, Soft Back: Normal Inspection, No CVA Tenderness, No Vertebral Tenderness Extremity: Normal Range of Motion, Non Tender Neurologic/Psychiatric: Alert, Oriented x3 Skin: normal color, warm/dry Focused Exam Lactate Level 12/26/18 16:35: Lactic Acid Level 1.37 Lactic Acid Level Laboratory Tests Test 12/26/18 16:35 Lactic Acid Level 1.37 MMOL/L (0.50-2.00) Progress/Results/Core Measures Suspected Sepsis Recent Fever Within 48 Hours: No Infection Criteria Present: None New/Unexplained Altered Menta: No Sepsis Screen: No Definite Risk SIRS Temperature:98.4 Pulse: 91 Respiratory Rate: 20 Laboratory Tests 12/26/18 16:35: White Blood Count 13.1H Blood Pressure 185 /92 Mean: 123 12/26/18 16:35: Lactic Acid Level 1.37 Laboratory Tests 12/26/18 16:35: Creatinine 1.72H, INR Comment 1.0, Platelet Count 248, Total Bilirubin 0.4 Results/Orders Lab Results Laboratory Tests Test 12/26/18 16:35 12/26/18 17:55 Range/Units White Blood Count 13.1 H 4.3-11.0 10^3/uL Red Blood Count 5.15 4.35-5.85 10^6/uL Hemoglobin 14.6 11.5-16.0 G/DL Hematocrit 45 35-52 % Mean Corpuscular Volume 87 80-99 FL Mean Corpuscular Hemoglobin 28 25-34 PG Mean Corpuscular Hemoglobin Concent 33 32-36 G/DL Red Cell Distribution Width 14.2 10.0-14.5 % Platelet Count 248 130-400 10^3/uL Mean Platelet Volume 10.7 H 7.4-10.4 FL Neutrophils (%) (Auto) 61 42-75 % Lymphocytes (%) (Auto) 26 12-44 % Monocytes (%) (Auto) 9 0-12 % Eosinophils (%) (Auto) 4 0-10 % Basophils (%) (Auto) 0 0-10 % Neutrophils # (Auto) 7.9 H 1.8-7.8 X 10^3 Lymphocytes # (Auto) 3.4 1.0-4.0 X 10^3 Monocytes # (Auto) 1.2 H 0.0-1.0 X 10^3 Eosinophils # (Auto) 0.6 H 0.0-0.3 10^3/uL Basophils # (Auto) 0.1 0.0-0.1 10^3/uL Prothrombin Time 13.7 12.2-14.7 SEC INR Comment 1.0 0.8-1.4 Activated Partial Thromboplast Time 28 24-35 SEC Sodium Level 140 135-145 MMOL/L Potassium Level 4.5 3.6-5.0 MMOL/L Chloride Level 111 H 98-107 MMOL/L Carbon Dioxide Level 20 L 21-32 MMOL/L Anion Gap 9 5-14 MMOL/L Blood Urea Nitrogen 32 H 7-18 MG/DL Creatinine 1.72 H 0.60-1.30 MG/DL Estimat Glomerular Filtration Rate 29 BUN/Creatinine Ratio 19 Glucose Level 119 H 70-105 MG/DL Lactic Acid Level 1.37 0.50-2.00 MMOL/L Calcium Level 9.5 8.5-10.1 MG/DL Corrected Calcium 9.7 8.5-10.1 MG/DL Total Bilirubin 0.4 0.1-1.0 MG/DL Aspartate Amino Transf (AST/SGOT) 16 5-34 U/L Alanine Aminotransferase (ALT/SGPT) 16 0-55 U/L Alkaline Phosphatase 68 40-136 U/L Total Protein 7.1 6.4-8.2 GM/DL Albumin 3.8 3.2-4.5 GM/DL Urine Color YELLOW Urine Clarity CLEAR Urine pH 5 5-9 Urine Specific [place]on 1.020 1.016-1.022 Urine Protein NEGATIVE NEGATIVE Urine Glucose (UA) NEGATIVE NEGATIVE Urine Ketones NEGATIVE NEGATIVE Urine Nitrite NEGATIVE NEGATIVE Urine Bilirubin NEGATIVE NEGATIVE Urine Urobilinogen NORMAL NORMAL MG/DL Urine Leukocyte Esterase NEGATIVE NEGATIVE Urine RBC (Auto) 3+ H NEGATIVE Urine RBC 2-5 H /HPF Urine WBC RARE /HPF Urine Squamous Epithelial Cells 2-5 /HPF Urine Crystals NONE /LPF Urine Bacteria NEGATIVE /HPF Urine Casts PRESENT /LPF Urine Hyaline Casts RARE /LPF Urine Mucus NEGATIVE /LPF Urine Culture Indicated CULTURE PENDING My Orders Orders - NITESH GALLEGO MD Cbc With Automated Diff (12/26/18 16:50) Comprehensive Metabolic Panel (12/26/18 16:50) Blood Culture (12/26/18 16:50) Sputum Culture (12/26/18 16:50) Urinalysis (12/26/18 16:50) Urine Culture (12/26/18 16:50) Protime With Inr (12/26/18 16:50) Partial Thromboplastin Time (12/26/18 16:50) Chest 1 View, Ap/Pa Only (12/26/18 16:50) Ed Iv/Invasive Line Start (12/26/18 16:50) Ed Iv/Invasive Line Start (12/26/18 16:50) Vital Signs Adult Sepsis Patie Q15M (12/26/18 16:50) O2 (12/26/18 16:50) Remove Rings In Anticipation O (12/26/18 16:50) Lactic Acid Analyzer (12/26/18 16:50) Ns Iv 1000 Ml (Sodium Chloride 0.9%) (12/26/18 16:50) Vital Signs/I&O 12/26/18 16:30 Temp 98.4 Pulse 91 Resp 20 B/P (MAP) 185/92 (123) Pulse Ox 97 O2 Delivery Room Air Capillary Refill : Less Than 3 Seconds Blood Pressure Mean: 123 Progress Note : Progress Note Seen and evaluated. IV, labs, UA, cultures and lactic acid as well as chest x- ray ordered. Monitor patient. Normal saline 1 L bolus. Monitor patient. 0: I have discussed with the pharmacist at [place] her medication list. She's been prescribed Levaquin 750 mg daily 5 days. Do note that she has elevated creatinine at 1.7 which may be dehydration but also may be a result of the her dose Levaquin. Creatinine yesterday was 1.3 at the clinic. She does not have pneumonia. 1817: UA is negative. We will go ahead and culture. At this point I believe she can stop the Levaquin completely as she does not have pneumonia nor urinary tract infection but does seem to be having some elevated creatinine which is likely related to dehydration and probably somewhat Levaquin. This is discussed with the patient and family who agree. She is actually feeling better with respect to her illness overall today and now she is feeling better after the fluids. Discharged home with return precautions. Patient verbalize understanding instructions and agreement with plan. Diagnostic Imaging Diagonstic Imaging: Xray Plain Films/CT/US/NM/MRI: chest Comments NAME: [facility] REC#: [id number] PT STATUS: REG ER : 1945 PHYSICIAN: NITESH GALLEGO MD ADMIT DATE: 12/26/18/ER Draft Date of Exam:12/26/18 CHEST 1 VIEW, AP/PA ONLY CLINICAL INDICATION: Patient with weakness. EXAM: Portable chest x-ray upright view. COMPARISONS: Chest x-ray dated 07/03/2018. Findings: Lungs/pleura: Lungs are clear. There is no pneumothorax. There is no pleural effusion. Mediastinum: Unremarkable. Pulmonary vasculature: Unremarkable. Heart: Cardiac silhouette is within normal limits for portable projection. Bones/extrathoracic soft tissue: There are hypertrophic spurs throughout the spine. IMPRESSION: There is no radiographic evidence of acute cardiopulmonary process. Dictated on workstation # [id number] Dict: 12/26/18 1755 Trans: 12/26/18 1758 [id number] Interpreted by: PATRICIA ALVAREZ MD Electronically signed by: Departure Impression Primary Impression: Dehydration Additional Impression: Acute renal insufficiency Disposition: 01 HOME, SELF-CARE Condition: Improved Departure-Patient Inst. Decision time for Depature: 18:20 Referrals: DANNIE WOOD DO (PCP/Family) Primary Care Physician Patient Instructions: Dehydration, Adult (DC), Kidney Failure (DC) Add. Discharge Instructions: All discharge instructions reviewed with patient and/or family. Voiced understanding. Your kidneys are mildly irritated which is likely from dehydration but may be from the antibiotic as well. You do not have a urinary tract infection or pneumonia. Stop taking the Levaquin. Follow-up with your doctor this week for recheck and further evaluation and to recheck your kidney function. She is drinking adequate amount of fluids and eat a normal diet. Return for worse pain , fever, vomiting, weakness, breathing problems or other concerns as needed. Copy Copies To 1: DANNIE WOOD TIMOTHY D MD December 26, 2018 17:24
--- NOTE | 2018-12-26 17:58 | Diagnostic Imaging Report ---
CLINICAL INDICATION: Patient with weakness. EXAM: Portable chest x-ray upright view. COMPARISONS: Chest x-ray dated 07/03/2018. Findings: Lungs/pleura: Lungs are clear. There is no pneumothorax. There is no pleural effusion. Mediastinum: Unremarkable. Pulmonary vasculature: Unremarkable. Heart: Cardiac silhouette is within normal limits for portable projection. Bones/extrathoracic soft tissue: There are hypertrophic spurs throughout the spine. IMPRESSION: There is no radiographic evidence of acute cardiopulmonary process. Dictated by: Dictated on workstation # [id number]
[2018-12-26 18:01] LABS: BILIRUBIN,URINE NEGATIVE (NEGATIVE); CLARITY,URINE CLEAR; COLOR,URINE YELLOW; GLUCOSE, URINE (UA) NEGATIVE (NEGATIVE); KETONES,URINE NEGATIVE (NEGATIVE); LEUKOCYTE ESTERASE ,URINE NEGATIVE (NEGATIVE); NITRITE,URINE NEGATIVE (NEGATIVE); PH,URINE 5 (5-9); PROTEIN,URINE NEGATIVE (NEGATIVE); UROBILINOGEN,URINE NORMAL (NORMAL)
[2018-12-26 18:14] LABS: BACTERIA,URINE NEGATIVE /HPF; HYALINE CASTS, URINE RARE /LPF; WBC,URINE RARE /HPF
[2018-12-26 18:30] VITALS: BP 147/82
== END 2018-12-26 18:30 | disposition home or self-care (01) ==
LOC: EDUNIT# 16:21 → ER 16:23
DX: E86.0 Dehydration (principal); N28.9 Disorder of kidney and ureter, unspecified; I48.91 Unspecified atrial fibrillation; I10 Essential (primary) hypertension; K21.9 Gastro-esophageal reflux disease without esophagitis; F41.9 Anxiety disorder, unspecified; F32.9 Major depressive disorder, single episode, unspecified; Z78.0 Asymptomatic menopausal state; Z90.710 Acquired absence of both cervix and uterus; Z90.49 Acquired absence of other specified parts of digestive tract; Z98.890 Other specified postprocedural states; Z99.81 Dependence on supplemental oxygen
CPT/HCPCS: 36415; 71045; 80053; 81000; 83605; 85025; 85610; 85730; 87040; 87088

== ENCOUNTER → 2019-04-11 | Outpatient (CLI) | payer MEDICARE ==
--- NOTE | 2019-04-11 19:15 | Diagnostic Imaging Report ---
INDICATION: Routine screening. COMPARISON: Comparison is made with prior mammograms from 03/17/2018 and 12/15/2016. TECHNIQUE: 2-D and 3-D bilateral screening mammography was performed. The current study was also evaluated with a Computer Aided Detection (CAD) system. 3-D tomosynthesis was also performed and reviewed. FINDINGS: Scattered fibroglandular densities are identified bilaterally. Benign parenchymal and vascular calcifications are identified bilaterally. No dominant mass or malignant-appearing microcalcifications are seen. The axillae are unremarkable. IMPRESSION: No mammographic features suspicious for malignancy are identified. ACR BI-RADS Category 2: Benign findings. Result letter will be mailed to the patient. Note: At least 10% of breast cancer is not imaged by mammography. Dictated by: Dictated on workstation # [id number]
== END ==
LOC: RAD 10:21
PROVIDERS: ATTEND Internal Medicine
DX: Z12.31 Encounter for screening mammogram for malignant neoplasm of breast (principal)
CPT/HCPCS: 77067

== ENCOUNTER → 2019-10-27 | Outpatient (CLI) | payer MEDICARE ==
[~2019-10-27] VITALS: Ht 152 cm; Wt 106.0 kg
[~2019-10-27] MED LIST changes: +CATHETER FLUSH 10 ML SYR IV PRN; +REGADENOSON 0.4 MG/5 ML SYR (LEXISCAN) IV ONE
[2019-10-27 08:19] VITALS: BP 171/80
--- NOTE | 2019-10-29 21:54 | STRESS TEST ---
DATE OF SERVICE: RESTING AND POST REGADENOSON TECHNETIUM-99M TETROFOSMIN SPECT CT IMAGING ORDERING PHYSICIAN: Dr. Delarosa. PRIMARY PHYSICIAN: Dr. Delarosa. CLINICAL DIAGNOSES: Chest pain, coronary artery disease. Baseline images were carried out after injection of 10.82 mCi of technetium-99m Tetrofosmin. This was followed by 0.4 mg regadenoson and 31.2 mCi of technetium-99m Tetrofosmin. The electrocardiogram showed sinus rhythm at baseline. It did not change significantly with regadenoson infusion. The patient tolerated the procedure well. The study was carried out under Dr. Delarosa's supervision. Job ID: [id number] DocumentID: [id number] Dictated Date: 10/29/2019 17:48:24 Analytical Lab Analyst Date: 10/29/2019 21:52:53 Dictated By: PAMELA TERRELL MD, MA, FACP, FACC,
== END ==
LOC: CARD 07:00
PROVIDERS: ATTEND Internal Medicine
DX: I25.10 Atherosclerotic heart disease of native coronary artery without angina pectoris (principal); M48.062 Spinal stenosis, lumbar region with neurogenic claudication
CPT/HCPCS: 78452; 93017

== ENCOUNTER → 2020-03-26 | Outpatient (CLI) | payer MEDICARE ==
[~2020-03-26] MED LIST changes: -CATHETER FLUSH 10 ML SYR IV PRN; -REGADENOSON 0.4 MG/5 ML SYR (LEXISCAN) IV ONE
--- NOTE | 2020-03-26 16:12 | Diagnostic Imaging Report ---
PROCEDURE: MRI lumbar spine. TECHNIQUE: Multiplanar, multisequence MRI of the lumbar spine was performed without contrast. INDICATION: Low back pain. Patient has had prior lumbar spine surgeries. Correlation is made with prior exam from 04/06/2017. FINDINGS: Left convexity lumbar scoliotic curvature is again noted. There is normal lordotic curvature. Postsurgical changes are again noted. Interspinous spacers at the L4-l5 and L5-S1 levels are noted. Intervertebral spacers at the L2-L3 and L3-L4 levels are noted. Vertebral body heights are maintained. No acute compression fracture is seen. No geographic marrow lesion is identified. Multilevel degenerative disc disease is noted with variable disc space narrowing and desiccation. The conus appears unremarkable at the L1 level. T12-L1: Central canal is patent. There may be some narrowing of the left neural foramen due to broad-based disc/osteophyte complex. Right neural foramen is patent. L1-L2: Central canal is patent. There is some narrowing of the lateral recesses bilaterally, right greater. There also appears to be moderate right neuroforaminal stenosis. L2-L3: Central canal is widely patent. Disc/osteophyte complex narrows the lateral recesses bilaterally. There is also a moderate amount of right neuroforaminal stenosis. L3-L4: Endplate osteophytes flatten the ventral thecal sac. Central canal is patent, but there is significant narrowing of the lateral recesses bilaterally. There is significant right neuroforaminal stenosis with moderate left neuroforaminal stenosis. L4-L5: Ligamentous thickening and facet changes with broad-based disc/osteophyte complex result in moderate trefoil stenosis of the central canal. There is significant bilateral lateral recess stenosis. There is also moderate bilateral neuroforaminal stenosis. L5-S1: Broad-based disc/osteophyte complex flattens the ventral thecal sac. There is severe left and moderate right lateral recess stenosis. There is severe left and mild right neuroforaminal stenosis. Central canal is patent. Paraspinous tissues are unremarkable. IMPRESSION: Lumbar scoliosis and spondylosis as well as postsurgical changes. There is multilevel central canal, lateral recess, and neuroforaminal stenosis described level by level above. No acute compression fracture is seen. Dictated by: Dictated on workstation # [id number]
== END ==
LOC: RAD 13:56
PROVIDERS: ATTEND Internal Medicine
DX: M48.07 Spinal stenosis, lumbosacral region (principal); M51.36 Other intervertebral disc degeneration, lumbar region; M25.78 Osteophyte, vertebrae; M41.86 Other forms of scoliosis, lumbar region; M47.816 Spondylosis without myelopathy or radiculopathy, lumbar region; E66.01 Morbid (severe) obesity due to excess calories; R09.02 Hypoxemia; E78.00 Pure hypercholesterolemia, unspecified; I25.10 Atherosclerotic heart disease of native coronary artery without angina pectoris; Z98.890 Other specified postprocedural states; Z68.41 Body mass index [BMI] 40.0-44.9, adult
CPT/HCPCS: 72148

== ENCOUNTER → 2020-11-27 | Outpatient (CLI) | payer MEDICARE ==
[~2020-11-27] MED LIST changes: +ISOS20TA13 PO; -ISOS20TA73 PO
--- NOTE | 2020-11-27 15:18 | Diagnostic Imaging Report ---
INDICATION: Lump in lateral right breast. Correlation is made with prior mammogram 04/11/2019 and 03/17/2018. 2-D and 3-D bilateral screening mammography was performed with CAD. Both breasts are heterogeneously dense, limiting the sensitivity of mammography. BB markers placed in the area of palpable abnormality in the lateral right breast. No mass is detected. There are scattered benign calcifications. No malignant appearing microcalcifications are seen. Axillae are unremarkable. IMPRESSION: BI-RADS 0 No mammographic features suspicious for malignancy are identified. Even so, directed sonographic interrogation of the outer right breast is recommended and will be performed today. ACR BI-RADS Category 0: Incomplete. (Needs additional imaging evaluation). Result letter will be mailed to the patient. Note: At least 10% of breast cancer is not imaged by mammography. Dictated by: Dictated on workstation # [id number]
--- NOTE | 2020-11-27 15:29 | Diagnostic Imaging Report ---
INDICATION: Palpable lump in the outer right breast. Correlation is made with diagnostic mammogram earlier same day. Sonographic interrogation in area of pain in the lateral right breast was performed. This corresponds to the 9 to 2 o'clock location, 7 to 10 cm from the nipple. No sonographic abnormality is detected. No solid or cystic masses detected. IMPRESSION: BI-RADS Category 1 No sonographic abnormality is identified. Continued close clinical and self breast exam is recommended to confirm stability of the area of pain and lump lateral right breast. ACR BI-RADS Category 1: Negative. Result letter will be mailed to the patient. Note: At least 10% of breast cancer is not imaged by mammography. Dictated by: Dictated on workstation # [id number]
== END ==
LOC: RAD 14:14
PROVIDERS: ATTEND Internal Medicine
DX: N63.10 Unspecified lump in the right breast, unspecified quadrant (principal)
CPT/HCPCS: 76642; 77066; G0279; 77062

== ENCOUNTER → 2021-07-03 | Outpatient (CLI) | payer MEDICARE ==
[~2021-07-03] MED LIST changes: -SULF1TAB35 PO; +SULF1TAB38 PO
--- NOTE | 2021-07-03 11:32 | Diagnostic Imaging Report ---
EXAMINATION: CHEST (PA AND LATERAL) CLINICAL INDICATION: 75-year-old female, shortness of breath. Evaluation for pneumonia. COMPARISON: July 12, 2012. FINDINGS: Heart size and mediastinal contours are unchanged. There is no identified pneumothorax. There is no pleural effusion. There is no identified focal airspace consolidation. There is scoliosis. There is spinal hardware. There are multilevel degenerative changes of the spine. IMPRESSION: No identified acute cardiopulmonary abnormality. Dictated by: Dictated on workstation # [id number]
== END ==
LOC: RAD 10:44
PROVIDERS: ATTEND Internal Medicine
DX: J18.1 Lobar pneumonia, unspecified organism (principal)
CPT/HCPCS: 71046

== ENCOUNTER → 2021-11-18 | Outpatient (CLI) | payer MEDICARE ==
--- NOTE | 2021-11-18 15:31 | Diagnostic Imaging Report ---
PROCEDURE: US Renal Bilateral. TECHNIQUE: Multiple real-time grayscale images were obtained over the kidneys in various projections bilaterally. INDICATION: Chronic kidney disease. Right kidney measures 10.4 x 4.8 x 5.5 cm. The left kidney measures 9.4 x 4.9 x 4.6 cm. Cortical thickness and echogenicity are normal. No calculi are seen. There is some dilatation of the left renal collecting system and left renal pelvis consistent with hydronephrosis. No right-sided hydronephrosis is identified. Bladder is decompressed. The left ureteral jet was visualized. Right ureteral jet was not visualized. IMPRESSION: Left-sided hydronephrosis. No other significant abnormality is detected. Dictated by: Dictated on workstation # [id number]
--- NOTE | 2021-11-19 08:36 | Diagnostic Imaging Report ---
INDICATION: Routine screening. COMPARISON: 11/27/2020 and 04/11/2019. TECHNIQUE: 2D and 3D bilateral screening mammography was performed with CAD. FINDINGS: Both breasts are heterogeneously dense, limiting the sensitivity of mammography. A density in the central left breast just lateral to the nipple line on the CC view and at the nipple line on the MLO view appears to be more prominent on today's study. Additional views are recommended. No other mass is seen. No malignant-appearing microcalcifications are identified. There are scattered benign parenchymal and vascular calcifications bilaterally. The axillae are unremarkable. IMPRESSION: Left breast density. Additional views are recommended for further evaluation. ACR BI-RADS Category 0: Incomplete. (Needs additional imaging evaluation). Result letter will be mailed to the patient. Note: At least 10% of breast cancer is not imaged by mammography. Dictated by: Dictated on workstation # [id number]
== END ==
LOC: RAD 14:15
PROVIDERS: ATTEND Internal Medicine
DX: Z12.31 Encounter for screening mammogram for malignant neoplasm of breast (principal); N13.30 Unspecified hydronephrosis; N18.31 Chronic kidney disease, stage 3a
CPT/HCPCS: 76770; 77063; 77067

== ENCOUNTER → 2021-12-04 | Outpatient (CLI) | payer MEDICARE ==
--- NOTE | 2021-12-04 14:05 | Diagnostic Imaging Report ---
INDICATION: Left breast density. Patient presents for additional views. COMPARISON: Correlation is made with the recent screening study from 11/18/2021 and a prior mammogram from 11/27/2020. TECHNIQUE: Unilateral left 2D and 3D diagnostic mammography was performed. This includes spot compression CC and ML views as well as conventional 90 degree lateral views. The current study was evaluated with a Computer Aided Detection (CAD) system. FINDINGS: There is a persistent ovoid density in the left mid breast just lateral to the nipple line approximately 7 to 8 cm from the nipple. There are benign calcifications. No malignant-appearing microcalcifications are seen. IMPRESSION: Persistent ovoid density at approximately the 3 o'clock location of the left breast 7 to 8 cm from the nipple. Further evaluation with ultrasound is recommended and will be performed today. ACR BI-RADS Category 0: Incomplete. (Needs additional imaging evaluation). Result letter will be mailed to the patient. Note: At least 10% of breast cancer is not imaged by mammography. Dictated by: Dictated on workstation # [id number]
--- NOTE | 2021-12-04 14:57 | Diagnostic Imaging Report ---
INDICATION: Left breast density on recent mammogram. COMPARISON: Correlation is made with the diagnostic mammogram from earlier this same day as well as a screening mammogram from 11/18/2021. FINDINGS: Sonographic interrogation of the outer left breast was performed. There is a solid-appearing ovoid hypoechoic mass at the 3 o'clock location of the left breast 6 cm from the nipple, likely accounting for the mammographic density. This measures 2.2 x 0.9 x 1.4 cm. This is fairly well-circumscribed. There is internal vascularity. There does appear to be some mild posterior acoustic enhancement; however, there is some slight obscuration of several margins. There may be some internal cystic change as well. No other masses are identified. IMPRESSION: Solid mass at the 3 o'clock location of the left breast 6 cm from the nipple, likely accounting for the mammographic density. While this could represent a degenerating fibroadenoma, other etiologies cannot be entirely excluded. Tissue sampling is recommended. This would be amenable to ultrasound-guided core biopsy. ACR BI-RADS Category 4: Suspicious abnormality. Dictated by: Dictated on workstation # [id number]
== END ==
LOC: RAD 13:15
PROVIDERS: ATTEND Internal Medicine
DX: N63.20 Unspecified lump in the left breast, unspecified quadrant (principal)
CPT/HCPCS: 76642; 77065; G0279

== ENCOUNTER → 2021-12-10 | Outpatient (CLI) | payer MEDICARE ==
[~2021-12-10] VITALS: Ht 154.9 cm; Wt 93.2 kg
[~2021-12-10] MED LIST changes: +LIDOCAINE 1% INJ 20 ML VIAL INJ ONE; +LIDOCAINE 1% INJ 20 ML VIAL ONE
--- NOTE | 2021-12-10 14:31 | Diagnostic Imaging Report ---
Indication: Left breast mass. Patient presents for ultrasound-guided biopsy. Patient brought to the sonographic suite and placed on table in the supine position. Ultrasound imaging of the left breast was performed to evaluate appropriate entry site. Left breast was then prepped and draped in usual sterile fashion. Small amount 1% lidocaine was utilized for local anesthesia. A total of 4 core biopsies were made of the solid hypoechoic mass at the 3:00 location of the left breast utilizing a 14-gauge achieve needle. A marker clip was then employed. Hemostasis was obtained using manual compression. Patient tolerated the procedure well and was sent for postprocedure mammogram in satisfactory condition. IMPRESSION: Successful ultrasound guided core biopsy of left breast mass 3:00 location. Pathology results are currently pending. Dictated by: Dictated on workstation # [id number]
--- NOTE | 2021-12-10 14:41 | Diagnostic Imaging Report ---
INDICATION: Left breast mass, status post ultrasound-guided biopsy. TECHNIQUE/FINDINGS: Unilateral left 2D CC and ML mammography was performed after the patient underwent ultrasound-guided biopsy. There is a marker clip within the ovoid density noted in the central left breast previously described. IMPRESSION: Peripherally located marker clip, status post ultrasound-guided biopsy. Dictated by: Dictated on workstation # [id number]
== END ==
LOC: RAD 11:00
PROVIDERS: ATTEND Internal Medicine
DX: R92.8 Other abnormal and inconclusive findings on diagnostic imaging of breast (principal)
CPT/HCPCS: 19083; 77065; G0279